=== PATIENT | male | born 1940 | race Caucasian/White ===

== ENCOUNTER 2017-03-18 08:16 | Inpatient (IN) | payer OTHER ==
[~2017-03-18] VITALS: Ht 177.8 cm; Wt 77.1 kg
--- NOTE | 2017-03-18 10:11 | DIAGNOSTIC IMAGING REPORT ---
PROCEDURE: XR CHEST 1 VIEW INDICATION: FEVER TECHNIQUE: Portable AP view 09:34 a.m. COMPARISON: None. FINDINGS: Lungs are clear. Heart and mediastinum are normal. Thorax is normal. IMPRESSION: 1. Negative chest.
--- NOTE | 2017-03-18 10:54 | ED CLINICAL REPORT ---
Clinical Report - Physicians/Mid Levels [facility] [address] [place] [address] 03/18/2017 8:17 Patient: WENDY LOZANO Time Seen: 810 AM. Arrived- By private vehicle. Historian- patient. HISTORY OF PRESENT ILLNESS Chief Complaint: FEVER and "NOT FEELING WELL". altered mental status. This started today and is still present. The patient has had fatigue and altered mental status. No chest pain, dyspnea, cough or skin rash. Additional history - No known contact with a sick individual. Has tender mass over the lower back. Similar symptoms previously: None. Recent medical care: Not recently seen/assessed. REVIEW OF SYSTEMS No anorexia, weight loss, palpitations, calf pain or sputum production. No nausea, constipation, black stools, difficulty with urination or headache. No sinus pain, sore throat, easy bruising or bruising or neck pain. No skin rash or diabetic symptoms. The patient has had back pain and weakness. All systems otherwise negative, except as recorded above. PAST HISTORY Hypertension. Colonic polyps Sleep apnea COPD Diverticulitis Cardiac arrhythmia eye injury Clotting disorder: not specified. Pleurisy. Surgeries: Appendectomy. Cataract surgery. Cholecystectomy. Colonoscopy. Hernia repair. Medications: Water Pill. Prosate pill. Blood Pressure Pill. Allergies: No Known Drug Allergy. SOCIAL HISTORY Light tobacco smoker (pipe). Alcohol use. ADDITIONAL NOTES The nursing notes have been reviewed. PHYSICAL EXAM Vital Signs: 03/18/2017 08:20 BP: 117/57. HR: 105. RR: 16. O2 saturation: 95%. Temp: 103 F. Pain level now: 0/10. Appearance: Alert. Patient in mild distress. Eyes: Eyes normal inspection. ENT: Ears normal. Nose normal. Pharynx normal. Neck: Normal inspection. Neck supple. No meningeal signs. CVS: Tachycardia. Heart sounds normal. Pulses normal. Respiratory: No respiratory distress. Breath sounds normal. Chest nontender. Abdomen: Soft and nontender. Back: (Large abscess over the lower back.). Skin: Skin warm. Normal skin color. No rash. Extremities: Extremities nontender. Neuro: Oriented X 3. Altered mental status. Patient slow to respond. Eyes open spontaneously. Best verbal response: oriented X 3. Best motor response: obeys commands. No motor deficit. No sensory deficit. LABS, X-RAYS, AND EKG EKG: No acute process. No acute ischemia. Normal EKG. Normal sinus rhythm. Rate: 99. Normal P waves. Normal BEATRICE. Normal QRS complex. Normal axis. Normal ST and T waves and QT. The study has been interpreted contemporaneously. The study has been independently viewed by me. The EKG appears to be a good tracing. Chest X-ray: Normal Chest X-Ray. Laboratory Tests: UA-Culture if indicated: (FEMI: 03/18/2017 10:15) ( MsgRcvd 03/18/2017 10:40) Final results Test Result Flag Units (Reference) URINE COLOR YELLOW URINE APPEARANCE CLEAR URINE GLUCOSE NEGATIVE (NEGATIVE) URINE BILIRUBIN NEGATIVE (NEGATIVE) URINE KETONE NEGATIVE (NEGATIVE) URINE SPECIFIC GRAVITY 1.010 (1.010-1.030) URINE PH 5.5 (5.0-8.0) URINE PROTEIN NEGATIVE (NEGATIVE) URINE UROBILINOGEN 0.2 EU/dL (0.2-1.0) URINE NITRITE NEGATIVE (NEGATIVE) URINE BLOOD NEGATIVE (NEGATIVE) URINE LEUK ESTERASE NEGATIVE (NEGATIVE) URINE RBC NONE SEEN rbc/hpf (0-1) URINE WBC NONE SEEN wbc/hpf (0-1) URINE EPITHELIAL CELLS RARE EPI/hpf (0-5) URINE BACTERIA TRACE (<1+) (NONE SEEN) URINE COMMENT CULT NOT INDICATED 0-1 HYALINE CASTURINE CULTURES ARE SET-UP BASED ON THE FOLLOWING CRITERIA:POSITIVE NITRITEPOSITIVE LEUKOCYTE ESTERASEGREATER THAN 10 WHITE BLOOD CELLSMODERATE (2+) OR GREATER BACTERIA CBC w Diff: (FEMI: 03/18/2017 08:25) ( MsgRcvd 03/18/2017 09:05) Final results Test Result Flag Units (Reference) WHITE BLOOD COUNT 10.1 K/uL (4.5-11.5) RED BLOOD COUNT 4.03 L M/uL (4.50-5.90) HEMOGLOBIN 12.8 L gm/dL (13.5-17.5) HEMATOCRIT 37.1 L % (41.0-53.0) MEAN CELL VOLUME 92 fL (80-100) MEAN CORPUSCULAR HGB 32 pg (26-34) MEAN CORPUSCULAR HGB CONC 34 g/dL (31-37) RED CELL DISTRIBUTION WIDTH 13.6 % (11.6-14.8) PLATELET COUNT 256 K/uL (150-400) NEUTROPHIL % 92.0 H % (50-75) LYMPH % 2.8 L % (25-40) MONO % 4.5 % (3-14) EOSINOPHIL % 0.2 % (0-4) BASOPHIL % 0.5 % (0-2) Lactate, Serum: (FEMI: 03/18/2017 08:40) ( MsgRcvd 03/18/2017 09:32) Final results Test Result Flag Units (Reference) LACTIC ACID 2.5 H mmol/L (0.4-2.0) CRITICAL RESULTS CALLEDCalled to [facility] 03/18/17 0912Were 2 patient identifiers used? YWas the result read back? Y CMP: (FEMI: 03/18/2017 08:25) ( MsgRcvd 03/18/2017 09:00) Final results Test Result Flag Units (Reference) GLUCOSE 120 H mg/dL (70-110) BUN 4 L mg/dL (7-18) CREATININE 0.8 mg/dL (0.6-1.3) Estimated GFR >60 mL/min Estimated GFR- >60 mL/min Note: Persistent reduction over 3 months in eGFR<60 mL/min/1.73 m2 defines CKD. Patients with eGFR values>=60 mL/min/1.73 m2 may also have CKD if evidence ofpersistent proteinuria. Additional information may be foundat www.[email or web address].org. SODIUM 138 mmol/L (136-145) POTASSIUM 3.8 mmol/L (3.5-5.1) CHLORIDE 103 mmol/L (98-107) CARBON DIOXIDE 25 mmol/L (21-32) CALCIUM 8.1 L mg/dL (8.5-10.1) TOTAL PROTEIN 7.3 g/dL (6.4-8.2) ALBUMIN 3.2 L g/dL (3.3-5.0) BILIRUBIN, TOTAL 0.4 mg/dL (0.0-1.0) ALKALINE PHOSPHATASE 64 U/L (46-116) AST (SGOT) 77 H U/L (15-37) ALT (SGPT) 50 U/L (12-78) . PROGRESS AND PROCEDURES Incision & Drainage of Abscess: The abscess is located in the back. The risks of the procedure, benefits and alternatives were explained. Local anesthesia provided using 1% lidocaine with epi. Skin cleansed with Betadine. The abscess was incised with a #11 surgical blade. A large amount of pus was drained. Cavity was irrigated with saline and packed with gauze. Sample obtained for cultures. A dressing was applied. Estimated blood loss: 2 mL. ( informed verbal consent obtained. patient tolerated well. no complications.). Course of Care: Assumed care at [address] Simons. Pt with early sepsis due to posterior thorax abscess. Pt with fever, tachycardia and elevated lactic acid level and altered mental status noted by ., BC times 2 Vancomycin 25mg/kg IV. Discussed case with on-call health care provider, (Yaritza). Reviewed test results. Agreed upon treatment plan. Health care provider will see patient in ED. Patient/family counseled. Old medical records ordered. Disposition orders written. Disposition: Admitted to Acute Care. CLINICAL IMPRESSION Sepsis with altered mental status (tachycardia and elevated lactic acid.). Single deep abscess to the back with incision and drainage. (Electronically signed by David Lee MD 03/19/2017 9:10)
--- NOTE | 2017-03-18 10:54 | ED ORDER SUMMARY ---
..... Patient: WENDY LOZANO OrderSheet [facility] VisitID: [id number] [address] [place] [address] 76y, M Registration Date/Time: 03/18/2017 ORDER SHEET Weight: 77.1 kg (stated) Allergies: No Known Drug Allergy GENERAL ORDERS: Community Services Officer (Continuous) (tachycardia) (08:34 03/18/2017 Vince Herrera) (8:35 JSimbeck R.N.) CBC w Diff Urgent (08:03/18/2017 Vince Herrera) (8:35 JSimbeck R.N.) CMP Urgent (08:03/18/2017 Vince Herrera) (8:35 JSimbeck R.N.) UA-Culture if indicated Urgent (08:03/18/2017 Vince Herrera) (Ack 8:38 PWeiler ER Tech1) (10:25 JBest R.N.) Lactate, Serum Urgent (08:03/18/2017 Vince Herrera) (Ack 8:38 PWeiler ER Tech1) (8:42 JSimbeck R.N.) (8:45 JBest R.N.) EKG - ER Stat (08:03/18/2017 Vince Herrera) (8:45 OHernandez) (8:45 JBest R.N.) Pulse oximeter (08:34 03/18/2017 Vince Herrera) (8:35 JSimbeck R.N.) Chest 1V Urgent (09:25 03/18/2017 Vince Herrera) (Ack 9:28 PWeiler ER Tech1) (9:37 JSimbeck R.N.) Blood Culture (No) (N/A) Urgent (10:02 03/18/2017 Juliano LIRA) (10:04 JSimbeck R.N.) Old Records (Medication list from PCP office) (10:24 03/18/2017 Juliano LIRA) (Ack 10:26 PWeiler ER Tech1) (11:02 PWeiler ER Tech1) Culture, Wound Surface (Back) (Abscess on back) Urgent (11:21 03/18/2017 Con Perez verbal order read back to Vince Herrera) (Ack 11:23 CITLALYeiler ER Tech1) (13:21 Vladimir R.N.) MEDICATION ORDERS: Lidocaine-Epinephrine Injection 1% (place at bedside, with syringes & needles) (08:35 03/18/2017 Vince Herrera) (10:27 Vladimir R.N.) IV FLUIDS: IV NS : initial bolus 1000 mL (1000 mL/hr), then none - for X1 (NOW) (08:34 03/18/2017 Vince Herrera) (8:39 Vladimir R.N.) Vancomycin IV 25 mg/kg (NOW) (10:18 03/18/2017 Juliano LIRA) (11:01 Vladimir Hill.NHarpreet) ORDER SHEET NOTES: [Electronically signed by Sofía Rainey R.N. (17:57 03/18/2017)] [Electronically signed by David Lee MD (09:10 03/19/2017)] [Electronically locked/signed by Sofía Rainey R.N. (17:57 03/18/2017)]
--- NOTE | 2017-03-18 10:54 | ED ORDER SUMMARY ---
..... Patient: WENDY LOZANO OrderSheet [facility] VisitID: [id number] [address] [place] [address] 76y, M Registration Date/Time: 03/18/2017 ORDER SHEET Weight: 77.1 kg (stated) Allergies: No Known Drug Allergy GENERAL ORDERS: Eligibility Consultant (Continuous) (tachycardia) (08:34 03/18/2017 Vince Herrera) (8:35 JSimbeck R.N.) CBC w Diff Urgent (08:03/18/2017 Vince Herrera) (8:35 JSimbeck R.N.) CMP Urgent (08:03/18/2017 Vince Herrera) (8:35 JSimbeck R.N.) UA-Culture if indicated Urgent (08:03/18/2017 Vince Herrera) (Ack 8:38 PWeiler ER Tech1) (10:25 JBest R.N.) Lactate, Serum Urgent (08:03/18/2017 Vince Herrera) (Ack 8:38 PWeiler ER Tech1) (8:42 JSimbeck R.N.) (8:45 JBest R.N.) EKG - ER Stat (08:03/18/2017 Vince Herrera) (8:45 OHernandez) (8:45 JBest R.N.) Pulse oximeter (08:34 03/18/2017 Vince Herrera) (8:35 JSimbeck R.N.) Chest 1V Urgent (09:25 03/18/2017 Vince Herrera) (Ack 9:28 PWeiler ER Tech1) (9:37 JSimbeck R.N.) Blood Culture (No) (N/A) Urgent (10:02 03/18/2017 Juliano LIRA) (10:04 JSimbeck R.N.) Old Records (Medication list from PCP office) (10:24 03/18/2017 Juliano LIRA) (Ack 10:26 PWeiler ER Tech1) (11:02 PWeiler ER Tech1) Culture, Wound Surface (Back) (Abscess on back) Urgent (11:21 03/18/2017 Con Perez verbal order read back to Vince Herrera) (Ack 11:23 CITLALYeiler ER Tech1) (13:21 Vladimir R.N.) MEDICATION ORDERS: Lidocaine-Epinephrine Injection 1% (place at bedside, with syringes & needles) (08:35 03/18/2017 Vince Herrera) (10:27 Vladimir R.N.) IV FLUIDS: IV NS : initial bolus 1000 mL (1000 mL/hr), then none - for X1 (NOW) (08:34 03/18/2017 Vince Herrera) (8:39 Vladimir R.N.) Vancomycin IV 25 mg/kg (NOW) (10:18 03/18/2017 Juliano LIRA) (11:01 Vladimir Hill.NHarpreet) ORDER SHEET NOTES: [Electronically signed by Sofía Rainey R.N. (17:57 03/18/2017)] [Electronically signed by David Lee MD (09:10 03/19/2017)] [Electronically locked/signed by Sofía Rainey R.N. (17:57 03/18/2017)]
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
--- NOTE | 2017-03-18 12:03 | Progress Note ---
Subjective General Admission History and Physical Examination Patient Name: Deep Morocho Admission Date: March 18, 2017 Primary Care Provider: Shiv Mendez M.D. Attending Physician: Mac Vigil MD Admitting Physician: Mac Vigil M.D. Code Status: FULL CODE Room: 304 Status: Inpatient, ACU SUBJECTIVE Historian: Patient Reliability: Fair Chief Complaint: Mental status changes, fever, abscess History of Present Illness: The patient is a 76-year-old white male with a significant past make a history of hypertension, BPH, who presented to [facility] emergency department on the day of admission secondary to complaints of fever, mental status changes, and abscess back. [facility] ER evaluation was consistent with infected sebaceous cyst left side back with associated cellulitis and SIRS. Secondary to the above the patient underwent I&D of abscess in the emergency department and was admitted for further evaluation and treatment by Mac Vigil M.D. PAST MEDICAL HISTORY Illnesses: 1. Hypertension 2. BPH 3. Pernicious anemia Allergies: 1. No known drug allergies Medications: 1. Lisinopril 40 mg 1 by mouth daily 2. Hydrochlorothiazide 12.5 mg by mouth daily 3. Flomax 0.4 mg by mouth daily 4. Flonase 2 sprays in each nostril daily 5. Folic acid 800 g by mouth daily 6. B12 1000 g injection monthly 7. Multivitamin one by mouth daily Surgery: 1. Hernia repair 2. Appendectomy Injuries: 1. No significant Hospitalizations: 1. For above surgery and medical problems FAMILY HISTORY Parents: 1. Father, , 85, heart disease, 2. Mother, , 55, heart disease Siblings: 1. The patient has several siblings with heart disease and cancer type unknown SOCIAL HISTORY 1. Marital Status: 2. Temple: None 3. Education: 11th grade 4. Employment History: [employer] years, retired 5. Occupational health exposures: None HABITS 1. Tobacco: The patient smokes a pipe 2. Drugs: None 3. Alcohol: None 4. Caffeine: None HEALTH SUPERVISION Item/Test 1. No recent IMMUNIZATIONS: 1. Pneumococcal: Previously obtained date unknown 2. Influenza: Previously obtained date unknown 3. Tetanus: Previously obtained date unknown ADVANCED DIRECTIVES: 1. Living well: Yes 2. POLST: No 3. Code Status: FULL CODE 4. Durable Power Pensions Retirement Plan Specialist Health care: Yes 5. Donor card: No REVIEW OF SYSTEMS Remarkable for those things stated in the history of present illness and past medical history. Seventeen point review of system completed with the following notable findings: Otherwise noncontributory. Physical Exam Vital Signs / I&Os Vital Signs Date Time Temp Pulse Resp B/P Pulse O2 O2 Flow FiO2 Ox Delivery Rate 03/18 1454 99.9 73 25 111/44 96 Room Air 03/18 1322 99.7 82 26 104/50 97 General Appearance Alert, Cooperative, No acute distress HEENT Atraumatic, PERRLA, EOMI, Moist mucous membranes Lungs Clear to auscultation, Normal air movement Neck Supple, No JVD Cardiovascular Regular rate and rhythm, Normal S1 and S2, No murmurs, gallops, rubs Abdomen Normal bowel sounds, Soft, No tenderness Extremities No cyanosis, No clubbing, No edema Neurological Cranial nerves intact, No lateralizing signs Psych/Mental Status Mood normal, Confused Assessment and Plan Problem List 1. Abscess Plan -The patient presents with abscess/cellulitis posterior thorax -Status post I&D -Consult surgery for follow-up of I&D site -Vancomycin per pharmacy protocol -Monitor 2. SIRS (systemic inflammatory response syndrome) Status Acute Onset Date Unknown Plan -Patient presented with signs of systemic inflammatory response -No findings of hypotension with borderline elevation lactic acid -Old lactic acid/perfusion evaluation shows improvement -Continue present therapy with antimicrobials/IV fluids 3. Hypertension Status Chronic Onset Date Unknown Plan -Monitor -Blood pressure well controlled at this time. -Low-salt diet -Continue outpatient medical regimen as appropriate. 4. BPH (benign prostatic hyperplasia) Status Chronic Onset Date Unknown Plan -Continue Flomax -Monitor -Not problematic at this time 5. Pernicious anemia Status Chronic Onset Date Unknown Plan -Patient with history of pernicious anemia -Outpatient follow-up to B12 administration -B12 2000 g by mouth daily Current status: Fair, unstable Anticipated discharge date: Anticipated discharge 3-4 days Anticipated discharge placement: Home Patient care time: Time in chart review, patient interview, physical exam, CPOE, and care documentation: 70 mins Visit to patient today: 2 Complexity of care: High DVT prophylaxis: Lovenox 40 mg subcutaneous daily E&M Codes Admission: Inpt-High/15535
--- NOTE | 2017-03-18 12:03 | Progress Note ---
Subjective General Admission History and Physical Examination Patient Name: Deep Morocho Admission Date: March 18, 2017 Primary Care Provider: Shiv Mendez M.D. Attending Physician: Mac Vigil MD Admitting Physician: Mac Vigil M.D. Code Status: FULL CODE Room: 304 Status: Inpatient, ACU SUBJECTIVE Historian: Patient Reliability: Fair Chief Complaint: Mental status changes, fever, abscess History of Present Illness: The patient is a 76-year-old white male with a significant past make a history of hypertension, BPH, who presented to [facility] emergency department on the day of admission secondary to complaints of fever, mental status changes, and abscess back. [facility] ER evaluation was consistent with infected sebaceous cyst left side back with associated cellulitis and SIRS. Secondary to the above the patient underwent I&D of abscess in the emergency department and was admitted for further evaluation and treatment by Mac Vigil M.D. PAST MEDICAL HISTORY Illnesses: 1. Hypertension 2. BPH 3. Pernicious anemia Allergies: 1. No known drug allergies Medications: 1. Lisinopril 40 mg 1 by mouth daily 2. Hydrochlorothiazide 12.5 mg by mouth daily 3. Flomax 0.4 mg by mouth daily 4. Flonase 2 sprays in each nostril daily 5. Folic acid 800 g by mouth daily 6. B12 1000 g injection monthly 7. Multivitamin one by mouth daily Surgery: 1. Hernia repair 2. Appendectomy Injuries: 1. No significant Hospitalizations: 1. For above surgery and medical problems FAMILY HISTORY Parents: 1. Father, , 85, heart disease, 2. Mother, , 55, heart disease Siblings: 1. The patient has several siblings with heart disease and cancer type unknown SOCIAL HISTORY 1. Marital Status: 2. Sabianist: None 3. Education: 11th grade 4. Employment History: [employer] years, retired 5. Occupational health exposures: None HABITS 1. Tobacco: The patient smokes a pipe 2. Drugs: None 3. Alcohol: None 4. Caffeine: None HEALTH SUPERVISION Item/Test 1. No recent IMMUNIZATIONS: 1. Pneumococcal: Previously obtained date unknown 2. Influenza: Previously obtained date unknown 3. Tetanus: Previously obtained date unknown ADVANCED DIRECTIVES: 1. Living well: Yes 2. POLST: No 3. Code Status: FULL CODE 4. Durable Power [employer] Health care: Yes 5. Donor card: No REVIEW OF SYSTEMS Remarkable for those things stated in the history of present illness and past medical history. Seventeen point review of system completed with the following notable findings: Otherwise noncontributory. Physical Exam Vital Signs / I&Os Vital Signs Date Time Temp Pulse Resp B/P Pulse O2 O2 Flow FiO2 Ox Delivery Rate 03/18 1454 99.9 73 25 111/44 96 Room Air 03/18 1322 99.7 82 26 104/50 97 General Appearance Alert, Cooperative, No acute distress HEENT Atraumatic, PERRLA, EOMI, Moist mucous membranes Lungs Clear to auscultation, Normal air movement Neck Supple, No JVD Cardiovascular Regular rate and rhythm, Normal S1 and S2, No murmurs, gallops, rubs Abdomen Normal bowel sounds, Soft, No tenderness Extremities No cyanosis, No clubbing, No edema Neurological Cranial nerves intact, No lateralizing signs Psych/Mental Status Mood normal, Confused Assessment and Plan Problem List 1. Abscess Plan -The patient presents with abscess/cellulitis posterior thorax -Status post I&D -Consult surgery for follow-up of I&D site -Vancomycin per pharmacy protocol -Monitor 2. SIRS (systemic inflammatory response syndrome) Status Acute Onset Date Unknown Plan -Patient presented with signs of systemic inflammatory response -No findings of hypotension with borderline elevation lactic acid -Old lactic acid/perfusion evaluation shows improvement -Continue present therapy with antimicrobials/IV fluids 3. Hypertension Status Chronic Onset Date Unknown Plan -Monitor -Blood pressure well controlled at this time. -Low-salt diet -Continue outpatient medical regimen as appropriate. 4. BPH (benign prostatic hyperplasia) Status Chronic Onset Date Unknown Plan -Continue Flomax -Monitor -Not problematic at this time 5. Pernicious anemia Status Chronic Onset Date Unknown Plan -Patient with history of pernicious anemia -Outpatient follow-up to B12 administration -B12 2000 g by mouth daily Current status: Fair, unstable Anticipated discharge date: Anticipated discharge 3-4 days Anticipated discharge placement: Home Patient care time: Time in chart review, patient interview, physical exam, CPOE, and care documentation: 70 mins Visit to patient today: 2 Complexity of care: High DVT prophylaxis: Lovenox 40 mg subcutaneous daily E&M Codes Admission: Inpt-High/76347
[2017-03-18] MEDS ORDERED: FLUTICASONE PR50 MCG (13:12)
[2017-03-18] MEDS ORDERED: FOLIC ACID1 MG PO (13:12)
[2017-03-18] MEDS ORDERED: HYDROCHLOROTHIA25 MG PO (13:13)
[2017-03-18] MEDS ORDERED: LISINOPRIL10 MG PO (13:14)
[2017-03-18] MEDS ORDERED: KETOCONAZOLE22 TOP (13:14)
[2017-03-18] MEDS ORDERED: PREDNISOLONE ACET1 % (13:15)
[2017-03-18] MEDS ORDERED: MULTIPLE VITAMIN PO (13:15)
[2017-03-18] MEDS ORDERED: MOXIFLOXACIN 0.5% (13:15)
[2017-03-18] MEDS ORDERED: FLOMAX0.4 MG PO (13:16)
[2017-03-18 13:22] VITALS: BP 104/50
[2017-03-18 14:54] VITALS: BP 111/44
[2017-03-18 18:54] VITALS: BP 123/55
[2017-03-19] VITALS (7 sets, daily range): BP systolic 107–153; BP diastolic 51–71
--- NOTE | 2017-03-19 07:40 | Progress Note ---
Subjective General Note Date: March 19, 2017 Admission Date: March 18, 2017 Hospital Day: 2 PCP: Shiv Mendez M.D. Status: Inpatient, ACU Advanced Directive: FULL CODE Room: 304 Admission History: The patient is a 76-year-old white male with a significant past make a history of hypertension, BPH, who presented to [facility] emergency department on the day of admission secondary to complaints of fever, mental status changes, and abscess back. [facility] ER evaluation was consistent with infected sebaceous cyst left side back with associated cellulitis and SIRS. Secondary to the above the patient underwent I&D of abscess in the emergency department and was admitted for further evaluation and treatment by Mac Vigil M.D. For other history present illness, past medical history, family history, social history, review of systems, and admission physical examination please see the patient's history and physical examination and ER visit note in the patient's medical record. Subjective: The patient states he is doing significantly better today. No specific complaints. Denies back pain. Mental status improved. Patient requests: None Medications and Allergies Medications Current Medications Sig/Ginger Start time Last Medication Dose Route Stop Time Status Admin Clarify Med Order See Dose 1030 03/20 1030 AC Insts (1) IV 03/20 1031 Vancomycin HCl 1,500 MG 1100,2300 03/18 2300 AC 03/18 Sodium Chloride 500 ML IV 2258 Acetaminophen 650 MG Q6H PRN 03/18 1215 AC PO Al Hydrox/Mg Hydrox/ 15 ML Q1H PRN 03/18 1215 AC Simethicone PO Atropine Sulfate 0.5 MG Q3MIN PRN 03/18 1215 AC IV Hydromorphone HCl See Dose Q1H PRN 03/18 1215 AC Insts (2) IV Lidocaine HCl See Dose ONCE PRN 03/18 1215 AC Insts (3) IV Magnesium Hydroxide 10 ML DAILY PRN 03/18 1215 AC PO Morphine Sulfate 2 MG Q3M PRN 03/18 1215 AC IV Nitroglycerin 0.4 MG Q5M PRN 03/18 1215 AC SL Ondansetron HCl 4 MG Q6H PRN 03/18 1215 AC IV Sodium Chloride 1,000 ML ASDIRECTED 03/18 1215 AC 03/19 IV 0425 Vancomycin HCl See Dose .[PER PHARMACY] 03/18 1215 AC Insts (4) IV Enoxaparin Sodium 40 MG DAILY 03/18 1214 AC 03/18 SC 1402 Famotidine/Sodium 50 ML Q12HR 03/18 1212 AC 03/18 Chloride IV 2126 Dose Instructions: (1)Clarify Med Order: VANCOMYCIN TROUGH (2)Hydromorphone HCl: 0.5 - 1 MG (3)Lidocaine HCl: 1.5 MG/KG (4)Vancomycin HCl: DOSING PER PHARMACY Allergies Coded Allergies: NKA (03/18/17) Reconcile Medications Scheduled Medications Fluticasone Propionate (Nasal) (Fluticasone Propionate Nasal) 50 MCG SPR 1 SPR NA BID (Reported) Folic Acid (Folic Acid 1 MG) 1 MG TAB 800 MCG PO DAILY (Reported) Hydrochlorothiazide 25 mg (Hydrochlorothiazide 25 MG) 25 MG TAB 12.5 MG PO DAILY (Reported) Ketoconazole 2 % SHA 2 % TOP DAILY (Reported) Lisinopril (Lisinopril 10 MG) 10 MG TAB 40 MG PO DAILY (Reported) Multiple Vitamin TAB 1 TAB PO DAILY (Reported) Tamsulosin HCl (Flomax) 0.4 MG CAP 0.4 MG PO HS (Reported) Miscellaneous Medications Moxifloxacin Hydrochloride (Moxeza) 0.5 % AUDREY (Reported) Prednisolone Acetate (Ophth) (Prednisolone Acetate - Eye) 1 % RAND (Reported) Physical Exam Vital Signs / I&Os Vital Signs Date Time Temp Pulse Resp B/P Pulse O2 O2 Flow FiO2 Ox Delivery Rate 03/19 0655 98.2 52 17 116/57 97 Room Air 03/19 0444 98.6 60 17 107/51 95 Room Air 03/19 0022 98.8 74 24 109/54 96 Room Air 03/18 2000 Room Air 03/18 1854 99.0 84 24 123/55 99 Room Air 03/18 1454 99.9 73 25 111/44 96 Room Air 03/18 1322 99.7 82 26 104/50 97 I&O 03/19 0000 03/18 1600 03/18 0800 Intake Total 1992 0 Output Total 300 300 Balance 1693 -300 General Appearance Alert, Cooperative, No acute distress Lungs Clear to auscultation, Normal air movement Cardiovascular Regular rate and rhythm, Normal S1 and S2 Abdomen Normal bowel sounds, Soft, No tenderness Extremities No cyanosis, No clubbing Skin Abscess site with less erythema. Minimal discharge. Neurological Cranial nerves intact, No lateralizing signs Psych/Mental Status Mood normal LAB Results Laboratory Tests 03/19 03/18 03/18 0430 1249 1205 Chemistry Plasma Sodium (136 - 145 mmol/L) 143 Plasma Potassium (3.5 - 5.1 mmol/L) 3.9 Plasma Chloride (98 - 107 mmol/L) 109 CO2 (Enzymatic) (21 - 32 mmol/L) 25 BUN (7 - 18 mg/dL) 9 Creatinine (0.6 - 1.3 mg/dL) 0.7 Est GFR ( Amer) (mL/min) >60 Est GFR (Non-Af Amer) (mL/min) >60 Glucose (70 - 110 mg/dL) 101 Lactic Acid (0.4 - 2.0 mmol/L) 1.0 Cancelled Plasma Calcium (8.5 - 10.1 mg/dL) 7.2 Hematology WBC (4.5 - 11.5 K/uL) 9.7 RBC (4.50 - 5.90 M/uL) 3.63 Hgb (13.5 - 17.5 gm/dL) 11.6 Hct (41.0 - 53.0 %) 34.2 MCV (80 - 100 fL) 94 MCH (26 - 34 pg) 32 RDW (11.6 - 14.8 %) 13.6 Neut % (Auto) (50 - 75 %) 74 Lymph % (Auto) (25 - 40 %) 18 [place] % (Auto) (3 - 14 %) 5 Eos % (Auto) (0 - 4 %) 0 Baso % (Auto) (0 - 2 %) 0 Band Neutrophils % (0 - 8 %) 3 Metamyelocytes % (0 - 1 %) 0 Myelocytes (0 - 1 %) 0 Other Cell Type 0 Plt Count, EDTA (150 - 400 K/uL) 194 PUBS MCHC (31 - 37 g/dL) 34 03/18 03/18 03/18 03/18 1015 0840 0825 0825 Chemistry Plasma Sodium (136 - 145 mmol/L) 138 Plasma Potassium (3.5 - 5.1 mmol/L) 3.8 Plasma Chloride (98 - 107 mmol/L) 103 CO2 (Enzymatic) (21 - 32 mmol/L) 25 BUN (7 - 18 mg/dL) 4 Creatinine (0.6 - 1.3 mg/dL) 0.8 Est GFR ( Amer) (mL/min) >60 Est GFR (Non-Af Amer) (mL/min) >60 Glucose (70 - 110 mg/dL) 120 Hemoglobin A1c % (4.5 - 6.2 %) 5.6 Lactic Acid (0.4 - 2.0 mmol/L) 2.5 Plasma Calcium (8.5 - 10.1 mg/dL) 8.1 Total Bilirubin (0.0 - 1.0 mg/dL) 0.4 AST (15 - 37 U/L) 77 ALT (12 - 78 U/L) 50 Alkaline Phosphatase (46 - 116 U/L) 64 Total Protein (6.4 - 8.2 g/dL) 7.3 Albumin (3.3 - 5.0 g/dL) 3.2 Hematology WBC (4.5 - 11.5 K/uL) 10.1 RBC (4.50 - 5.90 M/uL) 4.03 Hgb (13.5 - 17.5 gm/dL) 12.8 Hct (41.0 - 53.0 %) 37.1 MCV (80 - 100 fL) 92 MCH (26 - 34 pg) 32 RDW (11.6 - 14.8 %) 13.6 Neut % (Auto) (50 - 75 %) 87 Lymph % (Auto) (25 - 40 %) 3 Fill[place] % (Auto) (3 - 14 %) 3 Eos % (Auto) (0 - 4 %) 0 Baso % (Auto) (0 - 2 %) 0 Band Neutrophils % (0 - 8 %) 7 Metamyelocytes % (0 - 1 %) 0 Myelocytes (0 - 1 %) 0 Other Cell Type 0 Plt Count, EDTA (150 - 400 K/uL) 256 PUBS MCHC (31 - 37 g/dL) 34 Urines Urine Color YELLOW Urine Appearance CLEAR Urine pH (5.0 - 8.0) 5.5 Ur Specific [place] (1.010 - 1.030) 1.010 Urine Protein (NEGATIVE) NEGATIVE Urine Ketones (NEGATIVE) NEGATIVE Urine Blood (NEGATIVE) NEGATIVE Urine Nitrite (NEGATIVE) NEGATIVE Urine Bilirubin (NEGATIVE) NEGATIVE Urine Urobilinogen (0.2 - 1.0 EU/dL) 0.2 Ur Leukocyte Esterase (NEGATIVE) NEGATIVE Urine RBC (0 - 1 rbc/hpf) NONE SEEN Urine WBC (0 - 1 wbc/hpf) NONE SEEN Ur Epithelial Cells (0 - 5 EPI/hpf) RARE Urine Bacteria (NONE SEEN) TRACE (<1+) Urine Glucose (NEGATIVE) NEGATIVE Urine Comment CULT NOT INDICATED 03/18 0820 Chemistry Procalcitonin (0 - 0.5 ng/mL) <0.5 Microbiology Date/Time Procedure - Status Source Growth 03/18 1500 MRSA Screen - RECD NASAL 03/18 09 Superficial Wound Culture - RES BACK 03/18 09 Gram Stain - RES BACK 03/18 0825 Blood Culture - RECD BLOOD Assessment and Plan Problem List 1. Abscess Plan -Much improved -abscess site with minimal erythema. Minimal discharge. -Evaluated by Dr. Sheppard today. He states ready for discharge with outpatient treatment -continue vancomycin -switch to oral meds in a.m. with discharged home if stable 2. SIRS (systemic inflammatory response syndrome) Status Acute Onset Date Unknown Plan - Resolved -afebrile, temperature normal, WBC normal, 3. Hypertension Status Chronic Onset Date Unknown Plan -well-controlled -monitor -low salt diet 4. BPH (benign prostatic hyperplasia) Status Chronic Onset Date Unknown Plan -stable -not problematic at this time. 5. Pernicious anemia Status Chronic Onset Date Unknown Plan -Patient with history of pernicious anemia -B12 2000 g daily -Stable, monitor Current status: Fair, improved Anticipated discharge date: Anticipated discharge 2-3 days Anticipated discharge placement: Home Patient care time: Time in chart review, patient interview, physical exam, CPOE, and care documentation: 25 mins Visit to patient today: 1 Complexity of care: Moderate DVT prophylaxis: Lovenox 40 mg subcutaneous daily E&M Codes Rounding: Inpt-Moderate/66813
--- NOTE | 2017-03-19 09:11 | ED MED RECONCILIATION SUMMARY ---
Patient: WENDY LOZANO Medication Reconciliation Report [facility] VisitID: [id number] [address] [place] [address] 76y, M Registration Date/Time: 03/18/2017 Weight: 77.1 kg Height/Length: 70 in. BMI: 24.4 ALLERGIES: No Known Drug Allergy The patient's Home Medications are listed below: THE FOLLOWING MEDICATIONS NEED TO BE RECONCILED: Fluticasone Propionate Nasal (50 mcg/act) 2 sprays, daily Folic Acid Oral (800 mcg) 1 tablet, daily Hydrochlorothiazide Oral (25 mg) 1/2 tablet, daily Ketoconazole External (2 %), daily Lisinopril Oral (40 mg) 1 tablet, daily Moxifloxacin 0.5% opthalmic solution Multivitamins Oral Prednisolone 1% opthalmic suspension Tamsulosin HCl Oral (0.4 mg) 1 capsule, at bedtime The source(s) of the original Home Medication information: patient other patient's primary care provider The following Medications were given to the patient in the Emergency Department: IV NS IV Fluids bolus 0, then 1000 mL/hr, administered: 03/18/2017 8:39:00 AM Lidocaine-Epinephrine [Injection] Injection 2 %, administered: 03/18/2017 9:15:00 AM Vancomycin [IVPB] IVPB bolus 0, then 2 gm 270 mL/hr, administered: 03/18/2017 11:01:00 AM The following Medications were prescribed to the patient: None.
--- NOTE | 2017-03-19 09:11 | ED MAR SUMMARY ---
..... Medication Administration Record [facility] [address] [place] [address] Patient: WENDY LOZANO Visit ID: [id number] 76y, M Weight: 77.1 kg Height/Length: 70 in BMI: 24.4 ALLERGIES: No Known Drug Allergy Start 08:39 03/18/2017 Sofía Rainey R.N., Stop 09:35 03/18/2017 Michael Ford R.N. Medication Administered: IV NS (SALINE), Dose: IV Fluids over 1 hour(s), Rate: 1000 mL/hr, Dispensed: 1000 mL bag, Site: #2 left forearm. Medication Ordered: IV NS : initial bolus 1000 mL (1000 mL/hr), then none - for X1 (NOW). Given 09:15 03/18/2017 Sofía Rainey R.N. Medication Administered: LIDOCAINE-EPINEPHRINE [INJECTION] (LIDOCAINE-EPINEPHRINE), Dose: 2 % Injectable Injection. Medication Ordered: Lidocaine-Epinephrine Injection 1% (place at bedside, with syringes & needles). Start 11:01 03/18/2017 Sofía Rainey R.N., Stop 12:55 03/18/2017 Sofía Rainey R.N. Medication Administered: VANCOMYCIN [IVPB], Dose: 2 gm IVPB over 2 hour(s), Rate: 270 mL/hr, Dispensed: 500 mL bag, Site: #2 left forearm. Medication Ordered: Vancomycin IV 25 mg/kg (NOW).
--- NOTE | 2017-03-19 09:11 | ED DISCHARGE INSTRUCTIONS ---
Patient: WENDY LOZANO General Instructions [facility] VisitID: [id number] [place] [address] 76y, M Registration Date/Time: 03/18/2017 Sepsis with altered mental status (tachycardia and elevated lactic acid.). Single deep abscess to the back with incision and drainage. ADDITIONAL INFORMATION Abscess [Incision & Drainage] An abscess (sometimes called a boil) occurs when bacteria get trapped under the skin and begin to grow. Pus forms inside the abscess as the body responds to the bacteria. An abscess can occur with an insect bite, ingrown hair, blocked oil gland, pimple, cyst, or puncture wound. Treatment of your abscess has required an incision to drain the pus. If the abscess pocket was large, a gauze packing may have been inserted. This will need to be removed and possibly replaced on your next visit. Antibiotics are not required in the treatment of a simple abscess, unless the infection is spreading into the skin around the wound (known as cellulitis). Healing of the wound will take about one to two weeks depending on the size of the abscess. Healthy tissue will grow from the bottom and sides of the opening until it seals over. Home Care: The wound may drain for the first two days. Cover the wound with a clean dry dressing. If the dressing becomes soaked with blood or pus, change it. If a gauze packing was placed inside the abscess cavity, you may be advised to remove it yourself. You may do this in the shower. Once the packing is removed, you should wash the area in the shower or bath 3 to 4 times a day, until the skin opening has closed. If you were prescribed antibiotics, take them as directed until they are all gone. You may use acetaminophen (Tylenol) or ibuprofen (Motrin, Advil) to control pain, unless another pain medicine was prescribed. [ NOTE: If you have liver disease or ever had a stomach ulcer, talk with your doctor before using these medicines.] Follow Up with your doctor as advised by our staff. If a gauze packing was inserted in your wound, it should be removed in 1-2 days. Check your wound every day for the signs of worsening infection listed below. Get Prompt Medical Attention if any of the following occur: Increasing redness or swelling Red streaks in the skin leading away from the wound Increasing local pain or swelling Continued pus draining from the wound two days after treatment Fever of 100.4F (38C) or higher, or as directed by your healthcare provider Staph Infection (MRSA) "Staph" is the short name for the common bacteria called "staphylococcus aureus". Staph bacteria are often present on the skin without causing an infection. If it gets under the skin an infection occurs. This causes redness, tenderness, swelling and sometimes fluid drainage. MRSA stands for "Methicillin-Resistant Staph Aureus". Unlike a common staph infection, MRSA bacteria are resistant to the usual antibiotics and harder to treat. Also, MRSA is more toxic than common staph bacteria. It can spread quickly throughout the body and cause a life-threatening illness. MRSA is spread to others by direct physical contact with the bacteria. MRSA can also be transmitted from items contaminated by a person who has the bacteria, such as bandages, towels, bed sheets, or sports equipment. It is not spread through the air. Once you have a MRSA skin infection, you are at risk of having it recur in the future. If MRSA infection is suspected, the doctor may take a wound culture to confirm the diagnosis. Any abscess will be drained. One or sometimes two antibiotics that work against MRSA will be prescribed. Home Care: 1) Take any antibiotics prescribed exactly as directed until they are gone. 2) Follow the same washing procedures as outlined for Household Members below. 3) Keep draining wounds covered with clean, dry bandages. Change dressings as they become soiled. 4) You and those in contact with you should wash their hands frequently with soap and warm water or use an alcohol-based hand instruction dean. Do this after each time you change the bandage or touch the wound. 5) Avoid sharing personal items such as towels, washcloths, razors, clothing, or uniforms. Wash soiled sheets, towels or clothes in hot water with laundry detergent. Use an automatic clothes dryer set on high to kill any remaining bacteria. 6) Remove any artificial nails and nail french. 7) If you use a gym, wipe down equipment before and after each use. Treatment Of Household Members If you have been diagnosed with possible MRSA infection, those living with you are at higher risk of carrying the bacteria on their skin or in their nose, even if there is no sign of infection. Bacteria must be removed from the skin of all household members (including you) at the same time, so that it is not passed back and forth. Advise them to remove the bacteria as follows: Wash your whole body (scalp to toes) daily for five days with Hibiclens (chlorhexidine). Scrub fingernails with a brush for one minute twice a day. If any skin infections are present (boils, abscess, infected cut) these must be treated by a doctor. Washing alone will not treat a MRSA infection. Clean counter tops and children's toys; do not share personal items such as toothbrush and razors. It is okay to share glasses, plates, utensils. If antibiotic ointment was prescribed use it as directed. Follow Up with your doctor or as advised by our staff. If a wound culture was taken, call as directed in two days to obtain the results. If the culture result is positive for MRSA, tell medical personnel in the future that you were treated for this type of infection. Get Prompt Medical Attention if any of the following occur: -- Increasing redness, swelling or pain -- Red streaks in the skin around the wound -- Weakness or dizziness -- New appearance of pus or drainage from the wound -- New fever over 100.4 F (38.0 C) You have been given the following additional information: Abscess, Incision And Drainage MRSA Skin Infection, Suspected Or Confirmed (Electronically signed by David Lee MD 03/19/2017 9:10)
--- NOTE | 2017-03-19 09:11 | ED MAR SUMMARY ---
..... Medication Administration Record [facility] [address] [place] [address] Patient: WENDY LOZANO Visit ID: [id number] 76y, M Weight: 77.1 kg Height/Length: 70 in BMI: 24.4 ALLERGIES: No Known Drug Allergy Start 08:39 03/18/2017 Sofía Rainey R.N., Stop 09:35 03/18/2017 Michael Ford R.N. Medication Administered: IV NS (SALINE), Dose: IV Fluids over 1 hour(s), Rate: 1000 mL/hr, Dispensed: 1000 mL bag, Site: #2 left forearm. Medication Ordered: IV NS : initial bolus 1000 mL (1000 mL/hr), then none - for X1 (NOW). Given 09:15 03/18/2017 Sofía Rainey R.N. Medication Administered: LIDOCAINE-EPINEPHRINE [INJECTION] (LIDOCAINE-EPINEPHRINE), Dose: 2 % Injectable Injection. Medication Ordered: Lidocaine-Epinephrine Injection 1% (place at bedside, with syringes & needles). Start 11:01 03/18/2017 Sofía Rainey R.N., Stop 12:55 03/18/2017 Sofía Rainey R.N. Medication Administered: VANCOMYCIN [IVPB], Dose: 2 gm IVPB over 2 hour(s), Rate: 270 mL/hr, Dispensed: 500 mL bag, Site: #2 left forearm. Medication Ordered: Vancomycin IV 25 mg/kg (NOW).
--- NOTE | 2017-03-19 09:11 | ED MED RECONCILIATION SUMMARY ---
Patient: WENDY LOZANO Medication Reconciliation Report [facility] VisitID: [id number] [address] [place] [address] 76y, M Registration Date/Time: 03/18/2017 Weight: 77.1 kg Height/Length: 70 in. BMI: 24.4 ALLERGIES: No Known Drug Allergy The patient's Home Medications are listed below: THE FOLLOWING MEDICATIONS NEED TO BE RECONCILED: Fluticasone Propionate Nasal (50 mcg/act) 2 sprays, daily Folic Acid Oral (800 mcg) 1 tablet, daily Hydrochlorothiazide Oral (25 mg) 1/2 tablet, daily Ketoconazole External (2 %), daily Lisinopril Oral (40 mg) 1 tablet, daily Moxifloxacin 0.5% opthalmic solution Multivitamins Oral Prednisolone 1% opthalmic suspension Tamsulosin HCl Oral (0.4 mg) 1 capsule, at bedtime The source(s) of the original Home Medication information: patient other patient's primary care provider The following Medications were given to the patient in the Emergency Department: IV NS IV Fluids bolus 0, then 1000 mL/hr, administered: 03/18/2017 8:39:00 AM Lidocaine-Epinephrine [Injection] Injection 2 %, administered: 03/18/2017 9:15:00 AM Vancomycin [IVPB] IVPB bolus 0, then 2 gm 270 mL/hr, administered: 03/18/2017 11:01:00 AM The following Medications were prescribed to the patient: None.
--- NOTE | 2017-03-19 10:38 | Consultation Report ---
History Chief Complaint Infected inclusion cyst mid back History of Present Illness 76-year-old hard of hearing male, admitted with sepsis. Etiology thought to be infected inclusion cyst mid back. The infected inclusion cyst was incised and drained in the emergency room. The hospitalist and asked that I take a look at the wound. Patient History 1. Sepsis 2. Abscess 3. SIRS (systemic inflammatory response syndrome) Social History See hospitalist report Medications and Allergies Medications Current Medications Sig/Ginger Start time Last Medication Dose Route Stop Time Status Admin Clarify Med Order See Dose 1030 03/20 1030 AC Insts (1) IV 03/20 1031 Vancomycin HCl 1,500 MG 1100,2300 03/18 2300 AC 03/18 Sodium Chloride 500 ML IV 2258 Acetaminophen 650 MG Q6H PRN 03/18 1215 AC PO Al Hydrox/Mg Hydrox/ 15 ML Q1H PRN 03/18 1215 AC Simethicone PO Atropine Sulfate 0.5 MG Q3MIN PRN 03/18 1215 AC IV Hydromorphone HCl See Dose Q1H PRN 03/18 1215 AC Insts (2) IV Lidocaine HCl See Dose ONCE PRN 03/18 1215 AC Insts (3) IV Magnesium Hydroxide 10 ML DAILY PRN 03/18 1215 AC PO Morphine Sulfate 2 MG Q3M PRN 03/18 1215 AC IV Nitroglycerin 0.4 MG Q5M PRN 03/18 1215 AC SL Ondansetron HCl 4 MG Q6H PRN 03/18 1215 AC IV Sodium Chloride 1,000 ML ASDIRECTED 03/18 1215 AC 03/19 IV 0837 Vancomycin HCl See Dose .[PER PHARMACY] 03/18 1215 AC Insts (4) IV Enoxaparin Sodium 40 MG DAILY 03/18 1214 AC 03/19 SC 0837 Famotidine/Sodium 50 ML Q12HR 03/18 1212 AC 03/19 Chloride IV 0837 Dose Instructions: (1)Clarify Med Order: VANCOMYCIN TROUGH (2)Hydromorphone HCl: 0.5 - 1 MG (3)Lidocaine HCl: 1.5 MG/KG (4)Vancomycin HCl: DOSING PER PHARMACY Allergies Coded Allergies: NKA (03/18/17) Reconcile Medications Scheduled Medications Fluticasone Propionate (Nasal) (Fluticasone Propionate Nasal) 50 MCG SPR 1 SPR NA BID (Reported) Folic Acid (Folic Acid 1 MG) 1 MG TAB 800 MCG PO DAILY (Reported) Hydrochlorothiazide 25 mg (Hydrochlorothiazide 25 MG) 25 MG TAB 12.5 MG PO DAILY (Reported) Ketoconazole 2 % SHA 2 % TOP DAILY (Reported) Lisinopril (Lisinopril 10 MG) 10 MG TAB 40 MG PO DAILY (Reported) Multiple Vitamin TAB 1 TAB PO DAILY (Reported) Tamsulosin HCl (Flomax) 0.4 MG CAP 0.4 MG PO HS (Reported) Miscellaneous Medications Moxifloxacin Hydrochloride (Moxeza) 0.5 % AUDREY (Reported) Prednisolone Acetate (Ophth) (Prednisolone Acetate - Eye) 1 % RAND (Reported) Review of Systems Constitutional Denies: Fever, Chills, Sweats, Weakness, Malaise. ENT Other (hard of hearing, requiring hea). Respiratory Denies: Cough, SOB w/exertion, Wheezing. Cardiovascular Denies: Chest Pain. Skin Lesions (infected sebaceous cyst, mid b). Neurological Denies: Weakness, Incoordination, Change in speech, Confusion. Physical Exam Vital Signs / I&Os Vital Signs Date Time Temp Pulse Resp B/P Pulse O2 O2 Flow FiO2 Ox Delivery Rate 03/19 0655 98.2 52 17 116/57 97 Room Air 03/19 0444 98.6 60 17 107/51 95 Room Air 03/19 0022 98.8 74 24 109/54 96 Room Air 03/18 2000 Room Air 03/18 1854 99.0 84 24 123/55 99 Room Air 03/18 1454 99.9 73 25 111/44 96 Room Air 03/18 1322 99.7 82 26 104/50 97 I&O 03/18 0800 03/18 1600 03/19 0000 Intake Total 0 1992 Output Total 300 300 Balance -300 1693 Skin patient has an infected inclusion cyst mid back which has been I&D. There is minimal surrounding erythema. The indwelling wick was removed and the wound is cleansed thoroughly with hydrogen peroxide and a cotton tip applicator. A dressing applied to the wound Psych/Mental Status Mental status normal LAB Results Laboratory Tests 03/18 03/18 03/19 1205 1249 0430 Chemistry Plasma Sodium (136 - 145 mmol/L) 143 Plasma Potassium (3.5 - 5.1 mmol/L) 3.9 Plasma Chloride (98 - 107 mmol/L) 109 CO2 (Enzymatic) (21 - 32 mmol/L) 25 BUN (7 - 18 mg/dL) 9 Creatinine (0.6 - 1.3 mg/dL) 0.7 Est GFR ( Amer) (mL/min) >60 Est GFR (Non-Af Amer) (mL/min) >60 Glucose (70 - 110 mg/dL) 101 Lactic Acid (0.4 - 2.0 mmol/L) Cancelled 1.0 Plasma Calcium (8.5 - 10.1 mg/dL) 7.2 Hematology WBC (4.5 - 11.5 K/uL) 9.7 RBC (4.50 - 5.90 M/uL) 3.63 Hgb (13.5 - 17.5 gm/dL) 11.6 Hct (41.0 - 53.0 %) 34.2 MCV (80 - 100 fL) 94 MCH (26 - 34 pg) 32 RDW (11.6 - 14.8 %) 13.6 Neut % (Auto) (50 - 75 %) 74 Lymph % (Auto) (25 - 40 %) 18 [place] % (Auto) (3 - 14 %) 5 Eos % (Auto) (0 - 4 %) 0 Baso % (Auto) (0 - 2 %) 0 Band Neutrophils % (0 - 8 %) 3 Metamyelocytes % (0 - 1 %) 0 Myelocytes (0 - 1 %) 0 Other Cell Type 0 Plt Count, EDTA (150 - 400 K/uL) 194 PUBS MCHC (31 - 37 g/dL) 34 Microbiology Date/Time Procedure - Status Source Growth 03/18 1500 MRSA Screen - RECD NASAL Assessment and Plan Problem List 1. Abscess Plan Infected inclusion cyst of mid back, effectively drained. Recommendation this is cleaned out thoroughly twice a day by or caregiver with hydrogen peroxide and cotton tip applicator. A commend the patient follow up with his primary care provider later in the week to check the wound. At some point he will need definitive treatment, which would be excision of the inclusion cysts, capsule.
--- NOTE | 2017-03-19 20:24 | DIAGNOSTIC IMAGING REPORT ---
PROCEDURE: XR CHEST 1 VIEW INDICATION: Fever. Shortness of breath. TECHNIQUE: Portable AP view (1910 hours). COMPARISON: Compared to chest x-ray on 03/18/2017. FINDINGS: Development of pulmonary vascular congestion and mild interstitial changes. Lungs otherwise clear. Heart is of normal size. Mediastinum is normal. Thorax is normal. IMPRESSION: 1. Development of congestion and mild interstitial changes. Consider increased fluid status or interstitial pneumonitis (e.g., viral, Mycoplasma). 2. Otherwise negative chest. 3. Findings discussed with Dr. Smith.
[2017-03-20 02:17] VITALS: BP 140/68
--- NOTE | 2017-03-20 06:50 | Progress Note ---
Subjective General Note Date: March 20, 2017 Admission Date: March 18, 2017 Hospital Day: 3 PCP: Joe Barksdale M.D. Status: Inpatient, ACU Advanced Directive: FULL CODE Room: 304 Admission History: The patient is a 76-year-old white male with a significant past make a history of hypertension, BPH, who presented to [facility] emergency department on the day of admission secondary to complaints of fever, mental status changes, and abscess back. [facility] ER evaluation was consistent with infected sebaceous cyst left side back with associated cellulitis and SIRS. Secondary to the above the patient underwent I&D of abscess in the emergency department and was admitted for further evaluation and treatment by Mac Vigil M.D. For other history present illness, past medical history, family history, social history, review of systems, and admission physical examination please see the patient's history and physical examination and ER visit note in the patient's medical record. Subjective: The patient states he is doing well today. Had some mild shortness of breath last night. No complaints of chest pain. States back is improved. Complains of urinary hesitancy. Patient requests: Place back on medications for prostate Medications and Allergies Medications Current Medications Sig/Ginger Start time Last Medication Dose Route Stop Time Status Admin Clarify Med Order See Dose 1030 03/20 1030 AC Insts (1) IV 03/20 1031 Vancomycin HCl 1,500 MG 1100,2300 03/18 2300 AC 03/19 Sodium Chloride 500 ML IV 2253 Acetaminophen 650 MG Q6H PRN 03/18 1215 AC PO Al Hydrox/Mg Hydrox/ 15 ML Q1H PRN 03/18 1215 AC Simethicone PO Atropine Sulfate 0.5 MG Q3MIN PRN 03/18 1215 AC IV Hydromorphone HCl See Dose Q1H PRN 03/18 1215 AC Insts (2) IV Lidocaine HCl See Dose ONCE PRN 03/18 1215 AC Insts (3) IV Magnesium Hydroxide 10 ML DAILY PRN 03/18 1215 AC PO Morphine Sulfate 2 MG Q3M PRN 03/18 1215 AC IV Nitroglycerin 0.4 MG Q5M PRN 03/18 1215 AC SL Ondansetron HCl 4 MG Q6H PRN 03/18 1215 AC IV Vancomycin HCl See Dose .[PER PHARMACY] 03/18 1215 AC Insts (4) IV Enoxaparin Sodium 40 MG DAILY 03/18 1214 AC 03/19 SC 0837 Famotidine/Sodium 50 ML Q12HR 03/18 1212 AC 03/19 Chloride IV 2042 Dose Instructions: (1)Clarify Med Order: VANCOMYCIN TROUGH (2)Hydromorphone HCl: 0.5 - 1 MG (3)Lidocaine HCl: 1.5 MG/KG (4)Vancomycin HCl: DOSING PER PHARMACY Allergies Coded Allergies: NKA (03/18/17) Reconcile Medications Scheduled Medications Fluticasone Propionate (Nasal) (Fluticasone Propionate Nasal) 50 MCG SPR 1 SPR NA BID (Reported) Folic Acid (Folic Acid 1 MG) 1 MG TAB 800 MCG PO DAILY (Reported) Hydrochlorothiazide 25 mg (Hydrochlorothiazide 25 MG) 25 MG TAB 12.5 MG PO DAILY (Reported) Ketoconazole 2 % SHA 2 % TOP DAILY (Reported) Lisinopril (Lisinopril 10 MG) 10 MG TAB 40 MG PO DAILY (Reported) Multiple Vitamin TAB 1 TAB PO DAILY (Reported) Tamsulosin HCl (Flomax) 0.4 MG CAP 0.4 MG PO HS (Reported) Miscellaneous Medications Moxifloxacin Hydrochloride (Moxeza) 0.5 % AUDREY (Reported) Prednisolone Acetate (Ophth) (Prednisolone Acetate - Eye) 1 % RAND (Reported) Physical Exam Vital Signs / I&Os Vital Signs Date Time Temp Pulse Resp B/P Pulse O2 O2 Flow FiO2 Ox Delivery Rate 03/20 0217 99.0 83 16 140/68 94 Nasal 2.0 Cannula 03/20 0042 Nasal 2.0 Cannula 03/19 2235 98.4 89 18 153/67 97 Nasal 1.0 Cannula 03/19 1956 1.0 03/19 1922 96 Nasal 1.0 Cannula 03/19 1809 99.0 88 22 140/70 90 Room Air 03/19 1501 98.2 55 18 143/66 95 Room Air 03/19 1137 98.2 53 17 119/71 98 03/19 0655 98.2 52 17 116/57 97 Room Air I&O 03/20 0000 03/19 1600 03/19 0800 Intake Total 400 1082 1778 Output Total 725 100 625 Balance -412 374 6687 General Appearance Alert, Oriented X3, Cooperative, No acute distress Lungs Normal air movement, minimal basilar crackles Cardiovascular Regular rate and rhythm, Normal S1 and S2 Abdomen Normal bowel sounds, Soft, No tenderness Skin Abscess site has persistent purulent drainage. Neurological Cranial nerves intact, No lateralizing signs Psych/Mental Status Mental status normal, Mood normal LAB Results Laboratory Tests 03/20 0404 Chemistry Plasma Sodium (136 - 145 mmol/L) 143 Plasma Potassium (3.5 - 5.1 mmol/L) 3.3 Plasma Chloride (98 - 107 mmol/L) 107 CO2 (Enzymatic) (21 - 32 mmol/L) 21 BUN (7 - 18 mg/dL) 9 Creatinine (0.6 - 1.3 mg/dL) 0.9 Est GFR ( Amer) (mL/min) >60 Est GFR (Non-Af Amer) (mL/min) >60 Glucose (70 - 110 mg/dL) 111 Plasma Calcium (8.5 - 10.1 mg/dL) 7.8 Hematology WBC (4.5 - 11.5 K/uL) 11.8 RBC (4.50 - 5.90 M/uL) 3.94 Hgb (13.5 - 17.5 gm/dL) 12.3 Hct (41.0 - 53.0 %) 37.1 MCV (80 - 100 fL) 94 MCH (26 - 34 pg) 31 RDW (11.6 - 14.8 %) 13.5 Neut % (Auto) (50 - 75 %) 82 Lymph % (Auto) (25 - 40 %) 9 [place] % (Auto) (3 - 14 %) 4 Eos % (Auto) (0 - 4 %) 0 Baso % (Auto) (0 - 2 %) 0 Band Neutrophils % (0 - 8 %) 5 Metamyelocytes % (0 - 1 %) 0 Myelocytes (0 - 1 %) 0 Other Cell Type 0 Plt Count, EDTA (150 - 400 K/uL) 200 PUBS MCHC (31 - 37 g/dL) 33 Assessment and Plan Problem List 1. Abscess Plan -Persistent drainage from abscess site -Follow per surgery -Wound culture grew out Proteus mirabilis -Switch to Keflex 500 mg by mouth 3 times a day 2. SIRS (systemic inflammatory response syndrome) Status Acute Onset Date Unknown Plan -Resolved 3. Hypertension Status Chronic Onset Date Unknown Plan -Patient with mild elevation of BP -Placed back on lisinopril 20 mg by mouth twice a day -Lasix 20 mg by mouth daily -Monitor -Low-salt diet 4. BPH (benign prostatic hyperplasia) Status Chronic Onset Date Unknown Plan -Patient with history of BPH -Persistent urinary hesitancy -Patient placed back on Flomax 0.4 mg by mouth daily -Monitor 5. Hypokalemia Status Acute Onset Date Unknown Plan -Patient with findings of mild hypokalemia -KCl 40 mEq by mouth now and 20 mEq by mouth daily -Monitor 6. CHF (congestive heart failure) Status Acute Onset Date Unknown Plan -Patient with symptoms of shortness of breath last p.m. -Chest x-ray suggests pulmonary congestion -BNP significantly elevated -No complaints of chest pain -Lasix, lisinopril, consider Coreg based on blood pressure response -Obtain echocardiogram -Monitor -Low-salt diet 7. Pernicious anemia Status Chronic Onset Date Unknown Plan -Patient with history of pernicious anemia -Continue B12 supplementation -Monitor Current status: Fair, improved Anticipated discharge date: Anticipated discharge in 24 hours Anticipated discharge placement: Home Patient care time: Time in chart review, patient interview, physical exam, CPOE, and care documentation: 35 mins Visit to patient today: 1 Complexity of care: High DVT prophylaxis: Lovenox E&M Codes Rounding: Inpt-High/[id number]
[2017-03-20 06:51] VITALS: BP 131/66
[2017-03-20 10:14] VITALS: BP 156/58
[2017-03-20 14:55] VITALS: BP 133/66
[2017-03-20 18:00] VITALS: BP 140/61
[2017-03-20 22:57] VITALS: BP 124/60
[2017-03-21 04:15] VITALS: BP 121/60
[2017-03-21 06:27] VITALS: BP 123/62
--- NOTE | 2017-03-21 08:08 | Progress Note ---
Subjective General Note Date: March 21, 2017 Admission Date: March 18, 2017 Hospital Day: 4 PCP: Joe Barksdale M.D. Status: Inpatient, ACU Advanced Directive: FULL CODE Room: 304 Admission History: The patient is a 76-year-old white male with a significant past make a history of hypertension, BPH, who presented to [facility] emergency department on the day of admission secondary to complaints of fever, mental status changes, and abscess back. [facility] ER evaluation was consistent with infected sebaceous cyst left side back with associated cellulitis and SIRS. Secondary to the above the patient underwent I&D of abscess in the emergency department and was admitted for further evaluation and treatment by Mac Vigil M.D. For other history present illness, past medical history, family history, social history, review of systems, and admission physical examination please see the patient's history and physical examination and ER visit note in the patient's medical record. Subjective: The patient states he is doing well today. Denies shortness of breath. No significant back pain in area of abscess. Patient requests: None other than discharge today Medications and Allergies Medications Current Medications Sig/Ginger Start time Last Medication Dose Route Stop Time Status Admin Potassium Chloride 20 MEQ DAILY 03/21 0900 CAN PO Potassium Chloride 40 MEQ DAILY 03/21 0900 AC PO Cephalexin 500 MG TID 03/20 2200 AC 03/21 PO 0537 Lisinopril 20 MG BID 03/20 2100 AC 03/20 PO 2050 Furosemide 20 MG DAILY 03/20 1545 AC 03/20 PO 1551 Tamsulosin HCl 0.4 MG QHS 03/20 0900 AC 03/20 PO 2050 Acetaminophen 650 MG Q6H PRN 03/18 1215 AC PO Al Hydrox/Mg Hydrox/ 15 ML Q1H PRN 03/18 1215 AC Simethicone PO Atropine Sulfate 0.5 MG Q3MIN PRN 03/18 1215 AC IV Hydromorphone HCl See Dose Q1H PRN 03/18 1215 AC Insts (1) IV Lidocaine HCl See Dose ONCE PRN 03/18 1215 AC Insts (2) IV Magnesium Hydroxide 10 ML DAILY PRN 03/18 1215 AC PO Morphine Sulfate 2 MG Q3M PRN 03/18 1215 AC IV Nitroglycerin 0.4 MG Q5M PRN 03/18 1215 AC SL Ondansetron HCl 4 MG Q6H PRN 03/18 1215 AC IV Enoxaparin Sodium 40 MG DAILY 03/18 1214 AC 03/20 SC 0926 Famotidine/Sodium 50 ML Q12HR 03/18 1212 AC 03/20 Chloride IV 2049 Dose Instructions: (1)Hydromorphone HCl: 0.5 - 1 MG (2)Lidocaine HCl: 1.5 MG/KG Allergies Coded Allergies: NKA (03/18/17) Reconcile Medications Scheduled Medications Cephalexin Monohydrate (Cephalexin 500 MG) 500 MG CAP 500 MG PO TID Fluticasone Propionate (Nasal) (Fluticasone Propionate Nasal) 50 MCG SPR 1 SPR NA BID (Reported) Folic Acid (Folic Acid 1 MG) 1 MG TAB 800 MCG PO DAILY (Reported) Furosemide (Furosemide 20 MG) 20 MG TAB 20 MG PO DAILY Ketoconazole 2 % SHA 2 % TOP DAILY (Reported) Lisinopril (Lisinopril 10 MG) 10 MG TAB 40 MG PO DAILY (Reported) Multiple Vitamin TAB 1 TAB PO DAILY (Reported) Potassium Chloride (Klor-Con M20 - 20 Meq Tablet) 20 MEQ TAB 20 MEQ PO DAILY Tamsulosin HCl (Flomax) 0.4 MG CAP 0.4 MG PO HS (Reported) Miscellaneous Medications Moxifloxacin Hydrochloride (Moxeza) 0.5 % AUDREY (Reported) Prednisolone Acetate (Ophth) (Prednisolone Acetate - Eye) 1 % RAND (Reported) Discontinued Medications Hydrochlorothiazide 25 mg (Hydrochlorothiazide 25 MG) 25 MG TAB 12.5 MG PO DAILY (Reported) Discontinued reason: Not Indicated Physical Exam Vital Signs / I&Os Vital Signs Date Time Temp Pulse Resp B/P Pulse O2 O2 Flow FiO2 Ox Delivery Rate 03/21 0627 98.2 65 19 123/62 94 Room Air 03/21 0415 67 16 121/60 94 Room Air 03/20 2257 98.2 76 16 124/60 96 Room Air 0.0 03/20 2149 Room Air 03/20 1800 98.8 89 21 140/61 96 Room Air 03/20 1455 99.0 94 21 133/66 95 Room Air / 1014 97.9 91 21 156/58 98 Room Air 03/20 0956 Room Air 03/20 0815 2.0 I&O 03/21 0000 02 1600 03/20 0800 Intake Total 550 350 120 Output Total 8885 928 6181 Balance -1350 250 -1105 General Appearance Alert, Oriented X3, Cooperative, No acute distress Lungs Clear to auscultation, Normal air movement Cardiovascular Regular rate and rhythm, Normal S1 and S2 Abdomen Normal bowel sounds, Soft, No tenderness, No guarding Skin Abscess site with no significant surrounding erythema. Minimal discharge. Neurological Cranial nerves intact, Strength 5/5 x4 ext's, No lateralizing signs Psych/Mental Status Mental status normal, Mood normal LAB Results Laboratory Tests 03/21 03/21 03/20 0405 0405 1030 Chemistry Plasma Sodium (136 - 145 mmol/L) 145 Plasma Potassium (3.5 - 5.1 mmol/L) 2.9 Plasma Chloride (98 - 107 mmol/L) 108 CO2 (Enzymatic) (21 - 32 mmol/L) 26 BUN (7 - 18 mg/dL) 12 Creatinine (0.6 - 1.3 mg/dL) 0.9 Est GFR ( Amer) (mL/min) >60 Est GFR (Non-Af Amer) (mL/min) >60 Glucose (70 - 110 mg/dL) 97 Plasma Calcium (8.5 - 10.1 mg/dL) 7.6 Plasma Magnesium (1.8 - 2.4 mg/dL) 1.5 B-Natriuretic Peptide (5 - 100 pg/ml) 1110 Hematology WBC (4.5 - 11.5 K/uL) 9.3 RBC (4.50 - 5.90 M/uL) 3.42 Hgb (13.5 - 17.5 gm/dL) 10.8 Hct (41.0 - 53.0 %) 32.2 MCV (80 - 100 fL) 94 MCH (26 - 34 pg) 32 RDW (11.6 - 14.8 %) 12.9 Neut % (Auto) (50 - 75 %) 75 Lymph % (Auto) (25 - 40 %) 15 [place] % (Auto) (3 - 14 %) 6 Eos % (Auto) (0 - 4 %) 0 Baso % (Auto) (0 - 2 %) 0 Band Neutrophils % (0 - 8 %) 4 Metamyelocytes % (0 - 1 %) 0 Myelocytes (0 - 1 %) 0 Other Cell Type 0 Plt Count, EDTA (150 - 400 K/uL) 192 PUBS MCHC (31 - 37 g/dL) 33 Toxicology Vancomycin Trough Cancelled Assessment and Plan Problem List 1. CHF (congestive heart failure) Status Acute Onset Date Unknown Plan -Patient with findings suggestive of CHF -Mild pulmonary congestion on chest x-ray -Elevated BNP, improved today -Echocardiogram ordered, results pending -Discharge on Lasix 20 mg by mouth daily, lisinopril 40 mg by mouth daily -Low-salt diet -Outpatient follow-up with PCP with adjustments in therapy based on echocardiogram findings 2. Abscess Plan -Patient with findings of sebaceous cyst with infection -Status post I&D -See Dr. Moise's notes -Family instructed on care of abscess site/dressing change -Follow-up with PCP this week -Wound culture and sensitivity grew out Proteus mirabilis sensitive to Keflex -Keflex 500 mg by mouth 3 times a day on discharge 3. SIRS (systemic inflammatory response syndrome) Status Acute Onset Date Unknown Plan -Resolved 4. Hypertension Status Chronic Onset Date Unknown Plan -Patient with history of hypertension -Blood pressure well controlled -Blood pressure today 123/62 -Continue lisinopril 40 mg by mouth daily and Lasix 20 mg by mouth daily on discharge -Follow-up with PCP this week for reevaluation -Low-salt diet 5. BPH (benign prostatic hyperplasia) Status Chronic Onset Date Unknown Plan -Stable -Flomax 0.4 mg by mouth daily -Patient urinating well at discharge status post removal of [place] 6. Pernicious anemia Status Chronic Onset Date Unknown Plan -Patient with history of pernicious anemia -Continue B12 supplementation -Follow-up with PCP 7. Hypokalemia Status Acute Onset Date Unknown Plan -Patient with findings of mild hypokalemia -KCl 20 mEq by mouth daily on discharge -Outpatient follow-up with PCP Current status: Fair, improved Anticipated discharge date: Today Anticipated discharge placement: Home Patient care time: Time in chart review, patient interview, physical exam, CPOE, and care documentation: Greater than 30 mins Visit to patient today: 2 Complexity of care: Moderate DVT prophylaxis: Lovenox For other recommendations regarding discharge diet, activity, followup, and discharge medications please see the patient's discharge instructions. Greater than 30 min. was spent in the patient's discharge preparation including discharge interview and physical examination, progress note, discharge instructions, and discharge summary E&M Codes Discharge: Inpt >30 min spent/[id number]
[2017-03-21 11:56] VITALS: BP 129/60
--- NOTE | 2017-03-21 13:29 | Discharge Summary ---
Discharge Summary Report Admit Date 03/18/17 Discharge Date 03/21/17 Admission Diagnosis 1. Abscess 2. SIRS 3. Hypertension 4. BPH 5. Pernicious anemia Discharge Diagnosis 1. Abscess 2. SIRS 3. Hypertension 4. BPH 5. Pernicious anemia 6. CHF Brief History The patient is a 76-year-old white male with a significant past make a history of hypertension, BPH, who presented to [facility] emergency department on the day of admission secondary to complaints of fever, mental status changes, and abscess back. [facility] ER evaluation was consistent with infected sebaceous cyst left side back with associated cellulitis and SIRS. Secondary to the above the patient underwent I&D of abscess in the emergency department and was admitted for further evaluation and treatment by Mac Vigil M.D. For other history present illness, past medical history, family history, social history, review of systems, and admission physical examination please see the patient's history and physical examination and ER visit note in the patient's medical record. Hospital Course The following problems and their management were noted during the patient's hospitalization: 1. Abscess The patient presented with findings of infected sebaceous cyst/abscess posterior thorax left side. He underwent I&D in the emergency department. He was seen by surgery, Dr. Moise, for follow-up recommendations on abscess care. He was treated with IV followed by oral antimicrobials. Wound culture grew out Proteus mirabilis sensitive to cephalosporins (Keflex). The patient was placed on Keflex 500 mg by mouth 3 times a day on discharge. Wound care per Dr. Moise's recommendations. Follow-up with PCP this week 2. SIRS The patient presented with findings of SIRS. This resolved rapidly. No complications noted. 3. Hypertension The patient has a history of hypertension. Blood pressure was well controlled at the time of discharge. The patient was continued on lisinopril 40 mg by mouth daily and Lasix 20 mg by mouth daily. Outpatient follow-up with PCP. Low -salt diet on discharge 4. BPH The patient has a long-standing history of BPH. He had urinary hesitancy/ retention during his hospital stay. He was treated with [place] catheter and Flomax 0.4 mg by mouth daily. Discontinuation of his for the patient was urinating without problems. He will continue on Flomax post discharge. Outpatient follow-up with PCP. 5. Pernicious anemia The patient has a history of pernicious anemia. He was continued on B12 2000 g by mouth daily. 6. CHF The patient experienced shortness of breath or in his hospital stay with fluid resuscitation secondary to SIRS. Chest x-ray showed signs of pulmonary congestion. BNP was significantly elevated at 1150. The patient was treated with diuretics and LEANDRA inhibitor. His symptoms rapidly improved. He required no supplemental oxygen and was without hypoxemia at rest or with exertion. He had no other overt signs of CHF. Echocardiogram was performed which was pending at the time of discharge. Subsequent echo findings showed normal LV ejection fraction at 60-65%. There was LVH. No signs of diastolic dysfunction. Mild aortic stenosis and aortic insufficiency noted. There were findings of pulmonary hypertension. The patient will follow-up with Dr. Joe Barksdale. Adjustments in medical therapy based on echo report. Lab/Imaging Laboratory Tests 03/21 03/21 0405 [id number] Chemistry Plasma Sodium (136 - 145 mmol/L) 145 Plasma Potassium (3.5 - 5.1 mmol/L) 2.9 Plasma Chloride (98 - 107 mmol/L) 108 CO2 (Enzymatic) (21 - 32 mmol/L) 26 BUN (7 - 18 mg/dL) 12 Creatinine (0.6 - 1.3 mg/dL) 0.9 Est GFR ( Amer) (mL/min) >60 Est GFR (Non-Af Amer) (mL/min) >60 Glucose (70 - 110 mg/dL) 97 Plasma Calcium (8.5 - 10.1 mg/dL) 7.6 Plasma Magnesium (1.8 - 2.4 mg/dL) 1.5 B-Natriuretic Peptide (5 - 100 pg/ml) 1110 Hematology WBC (4.5 - 11.5 K/uL) 9.3 RBC (4.50 - 5.90 M/uL) 3.42 Hgb (13.5 - 17.5 gm/dL) 10.8 Hct (41.0 - 53.0 %) 32.2 MCV (80 - 100 fL) 94 MCH (26 - 34 pg) 32 RDW (11.6 - 14.8 %) 12.9 Neut % (Auto) (50 - 75 %) 75 Lymph % (Auto) (25 - 40 %) 15 [place] % (Auto) (3 - 14 %) 6 Eos % (Auto) (0 - 4 %) 0 Baso % (Auto) (0 - 2 %) 0 Band Neutrophils % (0 - 8 %) 4 Metamyelocytes % (0 - 1 %) 0 Myelocytes (0 - 1 %) 0 Other Cell Type 0 Plt Count, EDTA (150 - 400 K/uL) 192 PUBS MCHC (31 - 37 g/dL) 33 Echocardiogram IMPRESSION: 1. Normal sinus rhythm with wide QRS complexes. 2. Normal LV size; mild concentric LVH; normal wall motion and LV systolic function. EF is 60-65%. No diastolic dysfunction. 3. Mild aortic stenosis with mild associated AI 4. Trace pericardial effusion; moderate left pleural effusion. 5. Elevated PASP estimated a 65 mm Hg without associated RV dysfunction. In the right clinical setting this finding could be due to pulmonary hypertension. No prior study available for comparison Dictated by: MARIAM SARAVIA MD D: MORENA;03/21/17 1844 Discharge Instructions/Meds For other recommendations regarding discharge diet, activity, followup, and discharge medications please see the patient's discharge instructions. Discharge condition: Fair, improved Greater than 30 min. was spent in the patient's discharge preparation including discharge interview and physical examination, progress note, discharge instructions, and discharge summary The patient was interviewed and examined on the day of discharge. E&M Codes Discharge: Inpt >30 min spent/[id number]
[2017-03-21] MEDS ORDERED: KLOR-CON M2020 MEQ PO (14:02)
[2017-03-21] MEDS ORDERED: CEPHALEXIN500 MG PO (14:02)
[2017-03-21] MEDS ORDERED: FUROSEMIDE20 MG PO (14:02)
--- NOTE | 2017-03-21 14:07 | Provider's Discharge Care Plan ---
Problem, Goal, Plan Problem List 1. Abscess Goals: Improve disease control, Prevent disease progress Instructions: Follow up as directed, Take meds as directed, Follow-up with Dr. Barksdale this week. Dressing changes per Dr. Moise's recommendations. 2. CHF (congestive heart failure) Goals: Improve disease control, Improve function, Prevent disease progress Instructions: Follow up as directed, Take meds as directed, Avoid processed foods, Low-salt diet. Weigh yourself daily reporting these to Dr. Barksdale at your next visit 3. Hypokalemia Goals: Improve disease control, Improve nutrition status Instructions: Follow up as directed, Take meds as directed, Dr. Barksdale check your electrolytes (potassium level) at your next visit
--- NOTE | 2017-03-21 18:43 | DIAGNOSTIC IMAGING REPORT ---
REFERRING PHYSICIAN/PROVIDER: Dr. Vigil CONSULTING STAFF TECHNOLOGIST: Monie Raymond MD PROCEDURE: Echocardiogram TECHNICAL QUALITY: Good INDICATION: CHF RHYTHM DURING PROCEDURE: Normal sinus rhythm with wide QRS complexes INTERPRETATIONS: LEFT VENTRICLE: Normal LV size, mild concentric LVH; normal wall motion and LV systolic function. EF is 60-65%. No diastolic dysfunction MITRAL VALVE: Leaflets are normal; mild central regurgitation AORTIC VALVE: Aortic valve leaflets are sclerotic (especially the right coronary leaflet). Mild aortic stenosis with mild associated AI. Peak velocity is 2 m/sec; mean gradient is 17 mm Hg TRICUSPID VALVE: Mild central regurgitation. Estimated PA systolic pressure is 65 mm Hg assuming RA pressure of 15 mm Hg PULMONIC VALVE: Not seen CHAMBERS: RV is normal in size and function. Mild biatrial enlargement GREAT VESSELS: IVC is dilated at 2 cm and shows <50%respiratory collapse. Estimated RA pressure is 15 mm Hg. Ascending aorta is normal in size IMPRESSION: 1. Normal sinus rhythm with wide QRS complexes. 2. Normal LV size; mild concentric LVH; normal wall motion and LV systolic function. EF is 60-65%. No diastolic dysfunction. 3. Mild aortic stenosis with mild associated AI 4. Trace pericardial effusion; moderate left pleural effusion. 5. Elevated PASP estimated a 65 mm Hg without associated RV dysfunction. In the right clinical setting this finding could be due to pulmonary hypertension. No prior study available for comparison
== END 2017-03-21 16:30 | disposition home or self-care (01) | DRG 603 ==
LOC: ED SRH 08:16 → TRANS SRH 11:00 → CC SRH 11:00
PROVIDERS: ADMIT Internal Medicine
PROC: 0H96XZZ Drainage of Back Skin, External Approach (ICD-10-PCS; principal; 2017-03-18)
DX: L02.212 Cutaneous abscess of back [any part, except buttock and flank] (principal); L03.312 Cellulitis of back [any part except buttock and flank]; L72.3 Sebaceous cyst; B96.4 Proteus (mirabilis) (morganii) as the cause of diseases classified elsewhere; I50.9 Heart failure, unspecified; I27.2 Other secondary pulmonary hypertension; I10 Essential (primary) hypertension; E87.6 Hypokalemia; J44.9 Chronic obstructive pulmonary disease, unspecified; G47.30 Sleep apnea, unspecified; N40.1 Benign prostatic hyperplasia with lower urinary tract symptoms; R33.8 Other retention of urine; R39.11 Hesitancy of micturition; D51.0 Vitamin B12 deficiency anemia due to intrinsic factor deficiency; I35.0 Nonrheumatic aortic (valve) stenosis; F17.210 Nicotine dependence, cigarettes, uncomplicated; H91.90 Unspecified hearing loss, unspecified ear; Z82.49 Family history of ischemic heart disease and other diseases of the circulatory system
CPT/HCPCS: 85241; 90004; 90047; 90065; 90074; 90098; 90100; 90131; 90148; 90309; 91286; 91295; 91320; 91643; 92031; 92132; 92720; 93004; 95059; 95061

== ENCOUNTER 2017-03-31 19:54 | Emergency (ER) | payer OTHER ==
[~2017-03-31 19:54] MED LIST: CEPHALEXIN500 MG PO; FLOMAX0.4 MG PO; FLUTICASONE PR50 MCG; FOLIC ACID1 MG PO; FUROSEMIDE20 MG PO; HYDROCHLOROTHIA25 MG PO; KETOCONAZOLE22 TOP; KLOR-CON M2020 MEQ PO; LISINOPRIL10 MG PO; MOXIFLOXACIN 0.5%; MULTIPLE VITAMIN PO; PREDNISOLONE ACET1 %
--- NOTE | 2017-03-31 21:43 | ED CLINICAL REPORT ---
Clinical Report - Physicians/Mid Levels [facility] [address] [place] [address] 03/31/2017 19:57 Patient: WENDY LOZANO Time Seen: 20:29; initial patient contact, initial documentation, patient care assumed. Arrived- By private vehicle. Historian- patient. RETURN VISIT: recently seen in this ED by another ED physician. Seen now for a new unrelated complaint. HISTORY OF PRESENT ILLNESS Chief Complaint: URINARY RETENTION. This started today and is still present. The problem is described as severe. No penile discharge, discomfort with urination, urinary frequency, testicular pain or urgency of urination. No flank pain or Oconnell catheter problem. He has been unable to void. Not voiding only small amounts. Sexual history is noncontributory. Similar symptoms previously: Twice, as bad. Recent medical care: The patient was seen recently at this facility in the office and hospitalized. ( txed here on 03/18 for fever, admitted for sepsis secondary to abscess, got oconnell catheter put in in hospital, mt home with it, f/u with his dr at [facility], went home and couple days later couldn't pee so went back, they put oconnell back in, f/u today with his pcp Dr Radford, oconnell removed, since then hasn't been able to urinate). REVIEW OF SYSTEMS No fever, flank pain, hematuria, abdominal pain or vomiting. No diarrhea, chest pain or difficulty breathing. All systems otherwise negative, except as recorded above. PAST HISTORY See nurses notes. ( Hypertension. Colonic polyps Sleep apnea COPD Diverticulitis Cardiac arrhythmia eye injury Clotting disorder: not specified. Pleurisy. Surgeries: Appendectomy. Cataract surgery. Cholecystectomy. Colonoscopy. Hernia repair.). SOCIAL HISTORY Smoker- current status unknown (pipe). Occasional alcohol use. No drug use. No recent travel. Is a local resident. He lives with spouse. FAMILY HISTORY Negative. ADDITIONAL NOTES The nursing notes have been reviewed with agreement regarding the chief complaint, HPI, ROS, PMH and patient medications and allergies. PHYSICAL EXAM Vital Signs: 03/31/2017 20:00 BP: 142/78. HR: 72. RR: 20. O2 saturation: 100%. Temp: 97.8 F. Pain level now: 05/29. Have been reviewed as normal and appear to be correct. Appearance: Alert. Oriented X3. No acute distress. ENT: Normal external inspection. Pharynx normal. Neck: Neck supple. CVS: Heart sounds normal. Respiratory: No respiratory distress. Breath sounds normal. Abdomen: Soft and nontender. Bowel sounds normal. No organomegaly. No mass. Back: Normal external inspection. (healing abscess to center of lower back). : Oconnell catheter returning normal appearing urine. (nurse put in oconnell upon pt's arrival). Skin: Skin warm and dry. Normal skin color. No rash. Normal skin turgor. Extremities: Extremities exhibit normal ROM. No lower extremity edema. Neuro: Oriented X 3. No motor deficit. No sensory deficit. LABS, X-RAYS, AND EKG Laboratory Tests: UA-Culture if indicated: (FEMI: 03/31/2017 20:30) ( MsgRcvd 03/31/2017 21:21) Final results Test Result Flag Units (Reference) URINE COLOR STRAW URINE APPEARANCE CLEAR URINE GLUCOSE NEGATIVE (NEGATIVE) URINE BILIRUBIN NEGATIVE (NEGATIVE) URINE KETONE NEGATIVE (NEGATIVE) URINE SPECIFIC GRAVITY <= 1.005 L (1.010-1.030) URINE PH 5.5 (5.0-8.0) URINE PROTEIN NEGATIVE (NEGATIVE) URINE UROBILINOGEN 0.2 EU/dL (0.2-1.0) URINE NITRITE NEGATIVE (NEGATIVE) URINE BLOOD 2+ (NEGATIVE) URINE LEUK ESTERASE NEGATIVE (NEGATIVE) URINE RBC NONE SEEN rbc/hpf (0-1) This is a corrected result 03/31/17 2119:URINE RBC previously reported as: 1-3 rbc/hpf URINE WBC NONE SEEN wbc/hpf (0-1) This is a corrected result 03/31/172119:URINE WBC previously reported as: 0-1 wbc/hpf URINE EPITHELIAL CELLS NONE SEEN EPI/hpf (0-5) This is a corrected result 03/31/172119:UR EPITH CELLS previously reported as: 3-5 EPI/hpf URINE BACTERIA NONE SEEN (NONE SEEN) This is a corrected result 03/31/172119:URINE BACTERIA previously reported as: MODERATE (2+ TO 3+) URINE COMMENT CULT NOT INDICATED This is a corrected result 03/31/172120:URINE COMMENT previously reported as: CULTURE INDICATEDURINE CULTURES ARE SET-UP BASED ON THE FOLLOWING CRITERIA:POSITIVE NITRITEPOSITIVE LEUKOCYTE ESTERASEGREATER THAN 10 WHITE BLOOD CELLSMODERATE (2+) OR GREATER BACTERIA . PROGRESS AND PROCEDURES Course of Care: oconnell emptied during my exam, inital output 900ml, clear light yellow. Patient and family counseled in person regarding the patient's stable condition, test results and diagnosis. 21:40. Differential Diagnosis: Other possible considerations: urinary retention, uti, pyelo, kidney insufficiency, bph, prostate or bladder ca. Above considerations are based on history, physical exam, reassessment and laboratory data. Differential diagnosis was discussed with patient. Disposition: Discharged home in good and improved condition. Condition: good and stable. CLINICAL IMPRESSION Urinary retention. No drug induced urinary retention or enlarged prostate. INSTRUCTIONS Keep catheter in place; care as directed until released. Warnings: GENERAL WARNINGS: Return or contact your physician immediately if your condition worsens or changes unexpectedly, if not improving as expected, or if other problems arise. Specifically return if problem worsens. Understanding of the discharge instructions verbalized by patient. Follow-up with: Fredy Deleon MD, Urology, , [address] [facility], [address]; Andry Mccray MD, Urology, , [address] [facility], [address] Follow up in about two days even if well. Call for an appointment. Summary of care provided to patient. (Electronically signed by Giselle Chu A.R.N.P. 03/31/2017 23:27)
--- NOTE | 2017-03-31 21:43 | ED CLINICAL REPORT ---
Clinical Report - Physicians/Mid Levels [facility] [address] [place] [address] 03/31/2017 19:57 Patient: WENDY LOZANO Time Seen: 20:29; initial patient contact, initial documentation, patient care assumed. Arrived- By private vehicle. Historian- patient. RETURN VISIT: recently seen in this ED by another ED physician. Seen now for a new unrelated complaint. HISTORY OF PRESENT ILLNESS Chief Complaint: URINARY RETENTION. This started today and is still present. The problem is described as severe. No penile discharge, discomfort with urination, urinary frequency, testicular pain or urgency of urination. No flank pain or Oconnell catheter problem. He has been unable to void. Not voiding only small amounts. Sexual history is noncontributory. Similar symptoms previously: Twice, as bad. Recent medical care: The patient was seen recently at this facility in the office and hospitalized. ( txed here on 03/18 for fever, admitted for sepsis secondary to abscess, got oconnell catheter put in in hospital, sd home with it, f/u with his dr at [facility], went home and couple days later couldn't pee so went back, they put oconnell back in, f/u today with his pcp Dr Radford, oconnell removed, since then hasn't been able to urinate). REVIEW OF SYSTEMS No fever, flank pain, hematuria, abdominal pain or vomiting. No diarrhea, chest pain or difficulty breathing. All systems otherwise negative, except as recorded above. PAST HISTORY See nurses notes. ( Hypertension. Colonic polyps Sleep apnea COPD Diverticulitis Cardiac arrhythmia eye injury Clotting disorder: not specified. Pleurisy. Surgeries: Appendectomy. Cataract surgery. Cholecystectomy. Colonoscopy. Hernia repair.). SOCIAL HISTORY Smoker- current status unknown (pipe). Occasional alcohol use. No drug use. No recent travel. Is a local resident. He lives with spouse. FAMILY HISTORY Negative. ADDITIONAL NOTES The nursing notes have been reviewed with agreement regarding the chief complaint, HPI, ROS, PMH and patient medications and allergies. PHYSICAL EXAM Vital Signs: 03/31/2017 20:00 BP: 142/78. HR: 72. RR: 20. O2 saturation: 100%. Temp: 97.8 F. Pain level now: 05/29. Have been reviewed as normal and appear to be correct. Appearance: Alert. Oriented X3. No acute distress. ENT: Normal external inspection. Pharynx normal. Neck: Neck supple. CVS: Heart sounds normal. Respiratory: No respiratory distress. Breath sounds normal. Abdomen: Soft and nontender. Bowel sounds normal. No organomegaly. No mass. Back: Normal external inspection. (healing abscess to center of lower back). : Oconnell catheter returning normal appearing urine. (nurse put in oconnell upon pt's arrival). Skin: Skin warm and dry. Normal skin color. No rash. Normal skin turgor. Extremities: Extremities exhibit normal ROM. No lower extremity edema. Neuro: Oriented X 3. No motor deficit. No sensory deficit. LABS, X-RAYS, AND EKG Laboratory Tests: UA-Culture if indicated: (FEMI: 03/31/2017 20:30) ( MsgRcvd 03/31/2017 21:21) Final results Test Result Flag Units (Reference) URINE COLOR STRAW URINE APPEARANCE CLEAR URINE GLUCOSE NEGATIVE (NEGATIVE) URINE BILIRUBIN NEGATIVE (NEGATIVE) URINE KETONE NEGATIVE (NEGATIVE) URINE SPECIFIC GRAVITY <= 1.005 L (1.010-1.030) URINE PH 5.5 (5.0-8.0) URINE PROTEIN NEGATIVE (NEGATIVE) URINE UROBILINOGEN 0.2 EU/dL (0.2-1.0) URINE NITRITE NEGATIVE (NEGATIVE) URINE BLOOD 2+ (NEGATIVE) URINE LEUK ESTERASE NEGATIVE (NEGATIVE) URINE RBC NONE SEEN rbc/hpf (0-1) This is a corrected result 03/31/17 2119:URINE RBC previously reported as: 1-3 rbc/hpf URINE WBC NONE SEEN wbc/hpf (0-1) This is a corrected result 03/31/172119:URINE WBC previously reported as: 0-1 wbc/hpf URINE EPITHELIAL CELLS NONE SEEN EPI/hpf (0-5) This is a corrected result 03/31/172119:UR EPITH CELLS previously reported as: 3-5 EPI/hpf URINE BACTERIA NONE SEEN (NONE SEEN) This is a corrected result 03/31/172119:URINE BACTERIA previously reported as: MODERATE (2+ TO 3+) URINE COMMENT CULT NOT INDICATED This is a corrected result 03/31/172120:URINE COMMENT previously reported as: CULTURE INDICATEDURINE CULTURES ARE SET-UP BASED ON THE FOLLOWING CRITERIA:POSITIVE NITRITEPOSITIVE LEUKOCYTE ESTERASEGREATER THAN 10 WHITE BLOOD CELLSMODERATE (2+) OR GREATER BACTERIA . PROGRESS AND PROCEDURES Course of Care: oconnell emptied during my exam, inital output 900ml, clear light yellow. Patient and family counseled in person regarding the patient's stable condition, test results and diagnosis. 21:40. Differential Diagnosis: Other possible considerations: urinary retention, uti, pyelo, kidney insufficiency, bph, prostate or bladder ca. Above considerations are based on history, physical exam, reassessment and laboratory data. Differential diagnosis was discussed with patient. Disposition: Discharged home in good and improved condition. Condition: good and stable. CLINICAL IMPRESSION Urinary retention. No drug induced urinary retention or enlarged prostate. INSTRUCTIONS Keep catheter in place; care as directed until released. Warnings: GENERAL WARNINGS: Return or contact your physician immediately if your condition worsens or changes unexpectedly, if not improving as expected, or if other problems arise. Specifically return if problem worsens. Understanding of the discharge instructions verbalized by patient. Follow-up with: Fredy Deleon MD, Urology, , [address] [facility], [address]; Andry Mccray MD, Urology, , [address] [facility], [address] Follow up in about two days even if well. Call for an appointment. Summary of care provided to patient. (Electronically signed by Giselle Chu A.R.N.P. 03/31/2017 23:27)
--- NOTE | 2017-03-31 21:44 | ED NURSING NOTES ---
Clinical Report - Nurses [facility] [address] [place] [address] 03/31/2017 19:57 Patient: WENDY LOZANO TRIAGE Triage time 1999. Acuity: LEVEL 3. Chief Complaint: URINARY RETENTION. --20:44 Jeannette Pope R.N. 20:00 03/31/17. BP: 142/78. HR: 72. RR: 20. O2 saturation: 100%. Temp: 97.8 F. Pain level now: 05/29. --20:44 Jeannette Pope R.N. Weight: 77.1 kg stated. Height/Length: 70 inches Per Patient. BMI: 24.4. --20:42 Jeannette Pope R.N. Medications Fluticasone Propionate Nasal (Suspension 50 mcg/act) 2 sprays, daily. Folic Acid Oral (Tablet 800 mcg) 1 tablet, daily. Hydrochlorothiazide Oral (Tablet 25 mg) 1/2 tablet, daily. Ketoconazole External (Shampoo 2 %), daily. Lisinopril Oral (Tablet 40 mg) 1 tablet, daily. Moxifloxacin 0.5% opthalmic solution. Multivitamins Oral. Prednisolone 1% opthalmic suspension. Tamsulosin HCl Oral (Capsule 0.4 mg) 1 capsule, at bedtime. --20:41 Jeannette Pope R.N. Allergies No Known Drug Allergy. --20:41 Jeannette Pope R.N. History Arrived by private vehicle. Historian: patient. Unaccompanied. Primary physician (Prabhakar). Onset. (1500 today). ( had cath removed today, has not voiided since then). He has been unable to void. SOCIAL HX: Current every day smoker (pipe). Occasional alcohol use; consumes beer. No drug use. --20:44 Jeannette Pope R.N. ( all of interview and care had to be done with writting- pt has broken hearing aid and can 't hear anything without it.). --22:27 Jeannette Pope R.N. PROBLEMS: Abscess. MRSA Infection. Hypertension. --20:43 Jeannette Pope R.N. ADDITIONAL SURGERIES: Appendectomy. Cataract Surgery. Cholecystectomy. Colonoscopy. Hernia Repair. --20:43 Jeannette Pope R.N. Interventions ID band on patient. To treatment room. --20:44 Jeannette Pope R.N. PHYSICAL ASSESSMENT 20:00. Ambulatory to room. Patient gowned. GENERAL / NEURO / PSYCH: Alert. Oriented X 4. Appears anxious and in distress. RESPIRATORY: Respirations not labored. CVS: Capillary refill less than 2 seconds. GI / : ( c/o severe bladder pain , can't lay flat or sit due to pain). SKIN: Skin is warm and dry. --20:46 Jeannette Pope R.N. NURSING PROGRESS NOTES 20:00. Patient gowned. Head of bed elevated. Patient identifiers checked. Call light placed in reach. Side rails up. Bed placed in lowest position. Patient ready for evaluation- chart flagged. --20:44 Jeannette Pope R.N. 20:20. 16 fr oconnell catheter. Reason for indwelling catheter: retention. During procedure hand hygiene observed and sterile equipment and aseptic technique used. Return of greater than 1000 mL yellow-colored clear urine; attached to bedside drainage bag positioned below the bladder and secured with velcro. He tolerated procedure well. --20:45 Jeannette Pope R.N. 20:40. ( EDNP in to examine pt Pt much more calm and states "no pain at all now"). --20:48 Jeannette Pope R.N. 21:30. ( additional 600cc urine out , pt resting quietly, states he is in no distress). --22:29 Jeannette Pope R.N. DISPOSITION / DISCHARGE 22:15. Condition at departure: improved and stable. Learning barriers present. Learning barriers note: broken hearing aide, unable to hear- had to do all training with writting. Discharge instructions provided and reviewed with the patient. Reviewed referral to a urologist. Patient verbalized understanding. Written instructions provided in Serbian. The patient was discharged home and accompanied by liner reroll tender. He left the Emergency Department ambulatory and via private vehicle. Senior Procurement Manager driving. --22:29 Jeannette Pope R.N. 22:27 03/31/17. BP: 116/58. HR: 68. RR: 18. O2 saturation: 100%. Temp: deferred. Pain level now: 0/10. --22:29 Jeannette Pope R.N. Locked/Released at 03/31/2017 22:35 by Jeannette Pope R.N.
--- NOTE | 2017-03-31 21:44 | ED ORDER SUMMARY ---
..... Patient: WENDY LOZANO OrderSheet [facility] VisitID: [id number] [address] [place] [address] 76y, M Registration Date/Time: 03/31/2017 ORDER SHEET Weight: 77.1 kg (stated) Allergies: No Known Drug Allergy GENERAL ORDERS: UA-Culture if indicated Urgent (20:49 03/31/2017 HBivens A.R.N.P.) (Ack 20:54 RKaruga) (22:25 DDean R.N.) Leg Bag (21:44 03/31/2017 HBivens A.R.N.P.) (Cancelled: Other22:26 DDean R.N.) MEDICATION ORDERS: IV FLUIDS: ORDER SHEET NOTES: [Electronically signed by Jeannette Pope R.N. (22:35 03/31/2017)] [Electronically signed by Giselle Chu.R.N.P. (23:27 03/31/2017)] [Electronically locked/signed by Jeannette Pope R.N. (22:35 03/31/2017)]
--- NOTE | 2017-03-31 21:44 | ED NURSING NOTES ---
Clinical Report - Nurses [facility] [address] [place] [address] 03/31/2017 19:57 Patient: WENDY LOZANO TRIAGE Triage time 1999. Acuity: LEVEL 3. Chief Complaint: URINARY RETENTION. --20:44 Jeannette Pope R.N. 20:00 03/31/17. BP: 142/78. HR: 72. RR: 20. O2 saturation: 100%. Temp: 97.8 F. Pain level now: 05/29. --20:44 Jeannette Pope R.N. Weight: 77.1 kg stated. Height/Length: 70 inches Per Patient. BMI: 24.4. --20:42 Jeannette Pope R.N. Medications Fluticasone Propionate Nasal (Suspension 50 mcg/act) 2 sprays, daily. Folic Acid Oral (Tablet 800 mcg) 1 tablet, daily. Hydrochlorothiazide Oral (Tablet 25 mg) 1/2 tablet, daily. Ketoconazole External (Shampoo 2 %), daily. Lisinopril Oral (Tablet 40 mg) 1 tablet, daily. Moxifloxacin 0.5% opthalmic solution. Multivitamins Oral. Prednisolone 1% opthalmic suspension. Tamsulosin HCl Oral (Capsule 0.4 mg) 1 capsule, at bedtime. --20:41 Jeannette Pope R.N. Allergies No Known Drug Allergy. --20:41 Jeannette Pope R.N. History Arrived by private vehicle. Historian: patient. Unaccompanied. Primary physician (Prabhakar). Onset. (1500 today). ( had cath removed today, has not voiided since then). He has been unable to void. SOCIAL HX: Current every day smoker (pipe). Occasional alcohol use; consumes beer. No drug use. --20:44 Jeannette Pope R.N. ( all of interview and care had to be done with writting- pt has broken hearing aid and can 't hear anything without it.). --22:27 Jeannette Pope R.N. PROBLEMS: Abscess. MRSA Infection. Hypertension. --20:43 Jeannette Pope R.N. ADDITIONAL SURGERIES: Appendectomy. Cataract Surgery. Cholecystectomy. Colonoscopy. Hernia Repair. --20:43 Jeannette Pope R.N. Interventions ID band on patient. To treatment room. --20:44 Jeannette Pope R.N. PHYSICAL ASSESSMENT 20:00. Ambulatory to room. Patient gowned. GENERAL / NEURO / PSYCH: Alert. Oriented X 4. Appears anxious and in distress. RESPIRATORY: Respirations not labored. CVS: Capillary refill less than 2 seconds. GI / : ( c/o severe bladder pain , can't lay flat or sit due to pain). SKIN: Skin is warm and dry. --20:46 Jeannette Pope R.N. NURSING PROGRESS NOTES 20:00. Patient gowned. Head of bed elevated. Patient identifiers checked. Call light placed in reach. Side rails up. Bed placed in lowest position. Patient ready for evaluation- chart flagged. --20:44 Jeannette Pope R.N. 20:20. 16 fr oconnell catheter. Reason for indwelling catheter: retention. During procedure hand hygiene observed and sterile equipment and aseptic technique used. Return of greater than 1000 mL yellow-colored clear urine; attached to bedside drainage bag positioned below the bladder and secured with velcro. He tolerated procedure well. --20:45 Jeannette Pope R.N. 20:40. ( EDNP in to examine pt Pt much more calm and states "no pain at all now"). --20:48 Jeannette Pope R.N. 21:30. ( additional 600cc urine out , pt resting quietly, states he is in no distress). --22:29 Jeannette Pope R.N. DISPOSITION / DISCHARGE 22:15. Condition at departure: improved and stable. Learning barriers present. Learning barriers note: broken hearing aide, unable to hear- had to do all training with writting. Discharge instructions provided and reviewed with the patient. Reviewed referral to a urologist. Patient verbalized understanding. Written instructions provided in Urdu. The patient was discharged home and accompanied by sas administrator. He left the Emergency Department ambulatory and via private vehicle. Lieutenant General driving. --22:29 Jeannette Pope R.N. 22:27 03/31/17. BP: 116/58. HR: 68. RR: 18. O2 saturation: 100%. Temp: deferred. Pain level now: 0/10. --22:29 Jeannette Pope R.N. Locked/Released at 03/31/2017 22:35 by Jeannette Pope R.N.
--- NOTE | 2017-03-31 21:44 | ED ORDER SUMMARY ---
..... Patient: WENDY LOZANO OrderSheet [facility] VisitID: [id number] [address] [place] [address] 76y, M Registration Date/Time: 03/31/2017 ORDER SHEET Weight: 77.1 kg (stated) Allergies: No Known Drug Allergy GENERAL ORDERS: UA-Culture if indicated Urgent (20:49 03/31/2017 HBivens A.R.N.P.) (Ack 20:54 RKaruga) (22:25 DDean R.N.) Leg Bag (21:44 03/31/2017 HBivens A.R.N.P.) (Cancelled: Other22:26 DDean R.N.) MEDICATION ORDERS: IV FLUIDS: ORDER SHEET NOTES: [Electronically signed by Jeannette Pope R.N. (22:35 03/31/2017)] [Electronically signed by Giselle Chu.R.N.P. (23:27 03/31/2017)] [Electronically locked/signed by Jeannette Pope R.N. (22:35 03/31/2017)]
--- NOTE | 2017-03-31 23:27 | ED MAR SUMMARY ---
..... Medication Administration Record [facility] [address] [place], [place] [id number] Patient: WENDY LOZANO Visit ID: [id number] 76y, M Weight: 77.1 kg Height/Length: 70 in BMI: 24.4 ALLERGIES: No Known Drug Allergy
--- NOTE | 2017-03-31 23:27 | ED MED RECONCILIATION SUMMARY ---
Patient: WENDY LOZANO Medication Reconciliation Report [facility] VisitID: [id number] [address] [place] [address] 76y, M Registration Date/Time: 03/31/2017 Weight: 77.1 kg Height/Length: 70 in. BMI: 24.4 ALLERGIES: No Known Drug Allergy The patient's Home Medications are listed below: THE FOLLOWING MEDICATIONS NEED TO BE RECONCILED: Fluticasone Propionate Nasal (50 mcg/act) 2 sprays, daily Folic Acid Oral (800 mcg) 1 tablet, daily Hydrochlorothiazide Oral (25 mg) 1/2 tablet, daily Ketoconazole External (2 %), daily Lisinopril Oral (40 mg) 1 tablet, daily Moxifloxacin 0.5% opthalmic solution Multivitamins Oral Prednisolone 1% opthalmic suspension Tamsulosin HCl Oral (0.4 mg) 1 capsule, at bedtime The source(s) of the original Home Medication information: Not obtained. The following Medications were given to the patient in the Emergency Department: None. The following Medications were prescribed to the patient: None.
--- NOTE | 2017-03-31 23:27 | ED DISCHARGE INSTRUCTIONS ---
Patient: WENDY LOZANO General Instructions [facility] VisitID: [id number] [place] [address] 76y, M Registration Date/Time: 03/31/2017 Urinary retention. No drug induced urinary retention or enlarged prostate. INSTRUCTIONS Keep catheter in place; care as directed until released. Warnings: GENERAL WARNINGS: Return or contact your physician immediately if your condition worsens or changes unexpectedly, if not improving as expected, or if other problems arise. Specifically return if problem worsens. Understanding of the discharge instructions verbalized by patient. Follow-up with: Fredy Deleon MD, Urology, , [address] [facility] [address], [facility] [address]; Andry Mccray MD, Urology, , [address] [facility] [address] Follow up in about two days even if well. Call for an appointment. Summary of care provided to patient. ADDITIONAL INFORMATION Urinary Retention (Male) Urinary retention means that you are unable to pass urine, even though your bladder is full. The most common cause for this in males is a blockage of the bladder outlet by an enlarged prostate gland or a bladder infection. Certain medicines can also cause this problem. This condition is treated by insertion of a catheter into the bladder to drain the urine. This provides immediate relief. The catheter may need to remain in place for a few days to prevent a recurrence. The catheter has a balloon on the tip which was inflated after insertion. This prevents the catheter from falling out. Home Care: If an antibiotic was prescribed to treat a bladder infection, be sure to take it until finished, even if you are feeling better before it is all gone. If a catheter was left in place, it is important to keep bacteria from getting into the collection bag. Do not disconnect the catheter from the collection bag. Use a leg band to secure the drainage tube, so it does not pull on the catheter. Drain the collection bag when it becomes full using the drain spout at the bottom of the bag. Do not try to pull or remove your catheter. This will injure your urethra. It must be removed by a doctor or nurse. Follow Up with your doctor as advised. If a catheter was left in place, it can usually be removed within 3-7 days. Some conditions require that the catheter remains in longer. Follow up with your doctor to determine the right time for you. Get Prompt Medical Attention if any of the following occur: Fever of 100.4F (38C) or higher, or as directed by your healthcare provider Bladder or lower abdominal pain or fullness Abdominal swelling, nausea, vomiting or back pain Blood or urine leakage around the catheter Bloody urine coming from the catheter (if a new symptom) Weakness, dizziness or fainting Confusion or change in usual level of alertness If a catheter was left in place, return if: Catheter falls out Catheter stops draining for 6 hours Ireland Catheter Care A [place] catheter is a rubber tube that is placed through the urethra (opening where urine comes out) and into the bladder. This helps drain urine from the bladder. There is a small balloon on the end of the tube that is inflated after insertion. This keeps the catheter from sliding out of the bladder. A [place] catheter is used to treat urinary retention (unable to pass urine). It is also used when there is incontinence (loss of bladder control). Home Care: Finish taking any prescribed antibiotic even if you are feeling better before then. It is important to keep bacteria from getting into the collection bag. Do not disconnect the catheter from the collection bag. Use a leg band to secure the drainage tube, so it does not pull on the catheter. Drain the collection bag when it becomes full using the drain spout at the bottom of the bag. Do not try to pull or remove your catheter. This will injure your urethra. It must be removed by a doctor or nurse. Follow Up with your doctor, or as advised, for repeat urine testing and catheter removal or replacement. Get Prompt Medical Attention if any of the following occur: Fever of 100.4F (38C) or higher, or as directed by your healthcare provider Bladder pain or fullness Abdominal swelling, nausea or vomiting or back pain Blood or urine leakage around the catheter Bloody urine coming from the catheter (if a new symptom) Catheter falls out Catheter stops draining for 6 hours Weakness, dizziness or fainting You have been given the following additional information: Urinary Retention, Male Ireland Catheter, Care (Electronically signed by Giselle Chu A.R.N.P. 03/31/2017 23:27)
--- NOTE | 2017-03-31 23:27 | ED MED RECONCILIATION SUMMARY ---
Patient: WENDY LOZANO Medication Reconciliation Report [facility] VisitID: [id number] [address] [place] [address] 76y, M Registration Date/Time: 03/31/2017 Weight: 77.1 kg Height/Length: 70 in. BMI: 24.4 ALLERGIES: No Known Drug Allergy The patient's Home Medications are listed below: THE FOLLOWING MEDICATIONS NEED TO BE RECONCILED: Fluticasone Propionate Nasal (50 mcg/act) 2 sprays, daily Folic Acid Oral (800 mcg) 1 tablet, daily Hydrochlorothiazide Oral (25 mg) 1/2 tablet, daily Ketoconazole External (2 %), daily Lisinopril Oral (40 mg) 1 tablet, daily Moxifloxacin 0.5% opthalmic solution Multivitamins Oral Prednisolone 1% opthalmic suspension Tamsulosin HCl Oral (0.4 mg) 1 capsule, at bedtime The source(s) of the original Home Medication information: Not obtained. The following Medications were given to the patient in the Emergency Department: None. The following Medications were prescribed to the patient: None.
--- NOTE | 2017-03-31 23:27 | ED DISCHARGE INSTRUCTIONS ---
Patient: WENDY LOZANO General Instructions [facility] VisitID: [id number] [place] [address] 76y, M Registration Date/Time: 03/31/2017 Urinary retention. No drug induced urinary retention or enlarged prostate. INSTRUCTIONS Keep catheter in place; care as directed until released. Warnings: GENERAL WARNINGS: Return or contact your physician immediately if your condition worsens or changes unexpectedly, if not improving as expected, or if other problems arise. Specifically return if problem worsens. Understanding of the discharge instructions verbalized by patient. Follow-up with: Fredy Deleon MD, Urology, , [address], [facility] [address]; Andry Mccray MD, Urology, , [address] [facility] [address] Follow up in about two days even if well. Call for an appointment. Summary of care provided to patient. ADDITIONAL INFORMATION Urinary Retention (Male) Urinary retention means that you are unable to pass urine, even though your bladder is full. The most common cause for this in males is a blockage of the bladder outlet by an enlarged prostate gland or a bladder infection. Certain medicines can also cause this problem. This condition is treated by insertion of a catheter into the bladder to drain the urine. This provides immediate relief. The catheter may need to remain in place for a few days to prevent a recurrence. The catheter has a balloon on the tip which was inflated after insertion. This prevents the catheter from falling out. Home Care: If an antibiotic was prescribed to treat a bladder infection, be sure to take it until finished, even if you are feeling better before it is all gone. If a catheter was left in place, it is important to keep bacteria from getting into the collection bag. Do not disconnect the catheter from the collection bag. Use a leg band to secure the drainage tube, so it does not pull on the catheter. Drain the collection bag when it becomes full using the drain spout at the bottom of the bag. Do not try to pull or remove your catheter. This will injure your urethra. It must be removed by a doctor or nurse. Follow Up with your doctor as advised. If a catheter was left in place, it can usually be removed within 3-7 days. Some conditions require that the catheter remains in longer. Follow up with your doctor to determine the right time for you. Get Prompt Medical Attention if any of the following occur: Fever of 100.4F (38C) or higher, or as directed by your healthcare provider Bladder or lower abdominal pain or fullness Abdominal swelling, nausea, vomiting or back pain Blood or urine leakage around the catheter Bloody urine coming from the catheter (if a new symptom) Weakness, dizziness or fainting Confusion or change in usual level of alertness If a catheter was left in place, return if: Catheter falls out Catheter stops draining for 6 hours Ireland Catheter Care A [place] catheter is a rubber tube that is placed through the urethra (opening where urine comes out) and into the bladder. This helps drain urine from the bladder. There is a small balloon on the end of the tube that is inflated after insertion. This keeps the catheter from sliding out of the bladder. A [place] catheter is used to treat urinary retention (unable to pass urine). It is also used when there is incontinence (loss of bladder control). Home Care: Finish taking any prescribed antibiotic even if you are feeling better before then. It is important to keep bacteria from getting into the collection bag. Do not disconnect the catheter from the collection bag. Use a leg band to secure the drainage tube, so it does not pull on the catheter. Drain the collection bag when it becomes full using the drain spout at the bottom of the bag. Do not try to pull or remove your catheter. This will injure your urethra. It must be removed by a doctor or nurse. Follow Up with your doctor, or as advised, for repeat urine testing and catheter removal or replacement. Get Prompt Medical Attention if any of the following occur: Fever of 100.4F (38C) or higher, or as directed by your healthcare provider Bladder pain or fullness Abdominal swelling, nausea or vomiting or back pain Blood or urine leakage around the catheter Bloody urine coming from the catheter (if a new symptom) Catheter falls out Catheter stops draining for 6 hours Weakness, dizziness or fainting You have been given the following additional information: Urinary Retention, Male Ireland Catheter, Care (Electronically signed by Giselle Chu A.R.N.P. 03/31/2017 23:27)
--- NOTE | 2017-03-31 23:27 | ED MAR SUMMARY ---
..... Medication Administration Record [facility] [address] [place], [place] [id number] Patient: WENDY LOZANO Visit ID: [id number] 76y, M Weight: 77.1 kg Height/Length: 70 in BMI: 24.4 ALLERGIES: No Known Drug Allergy
== END 2017-03-31 22:15 | disposition home or self-care (01) ==
LOC: ED SRH 19:54
DX: R33.9 Retention of urine, unspecified (principal); J44.1 Chronic obstructive pulmonary disease with (acute) exacerbation; I10 Essential (primary) hypertension; Z79.84 Long term (current) use of oral hypoglycemic drugs; Z79.899 Other long term (current) drug therapy
CPT/HCPCS: 90004